=== PATIENT | female | born 1985 | race Caucasian/White ===

== ENCOUNTER 2025-01-11 10:08 | Inpatient (IN) | payer MEDICAID, SELFPAY ==
--- NOTE | ~2025-01-11 | XR_ITS ---
EXAMINATION: XR LUMBAR SPINE 2-3 VIEWS HISTORY: pain COMPARISON: There are no prior studies for comparison. FINDINGS: AP, lateral, and coned down views of the lumbar spine are submitted. Osseous mineralization is normal. Five nonrib-bearing lumbar vertebral bodies are identified, maintaining normal height and alignment without evidence of fracture or spondylolisthesis. The intervertebral disc spaces are preserved. The posterior elements are intact. The visualized paraspinal soft tissues are unremarkable. XR/XR lumbar spine 2-3V IMPRESSION: Unremarkable examination of the lumbar spine. Electronically signed by: Teodoro Hawk MD 01/11/2025 01:56 PM EDT
--- NOTE | ~2025-01-11 | CT_ITS ---
EXAMINATION: CT CERVICAL SPINE WITHOUT CONTRAST CLINICAL INFORMATION: Cervical pain. COMPARISON: None available. TECHNIQUE: Spiral CT imaging of the cervical spine performed in axial plane without contrast. Multiplanar reformatted images were constructed from the axial data set. This CT examination was performed using dose optimization techniques as appropriate, variously including the following: *Automated exposure control *Adjustment of mA and/or kV according to patient size (this includes techniques or standardized protocols for targeted exams where dose is matched to indication/reason for exam; i.e. extremities or head) *Use of iterative reconstruction technique FINDINGS: CORONAL ALIGNMENT: -Minimal levoconvex scoliosis, possibly positional. SAGITTAL ALIGNMENT: -Straightening of the normal lordosis. -There is a 2 mm retrolisthesis of C5-6 and C6-7. -Sagittal alignment is otherwise anatomic. C1-C2 AND CRANIOCERVICAL JUNCTION: -Intact and aligned. VERTEBRAL BODIES AND FACETS: -There is no fracture or compression deformity. -There are erosive endplate changes at C6-7, with endplate osteopenia and permeative-type changes. There is associated prevertebral soft tissue swelling and fluid present. Findings are highly suspicious for acute discitis/osteomyelitis. -Cannot exclude involvement of C5-6, which demonstrates much more subtle changes. -There is normal facet alignment. DISCS: -There is moderate disc space loss at C5-6 and more significant loss at C6-7. CENTRAL CANAL: -No evidence of high-grade central canal narrowing or large disc herniation allowing for modality limitations. PREVERTEBRAL AND PARAVERTEBRAL SOFT TISSUES: -There is prevertebral soft tissue swelling and edema spanning C4-T1, most notable at C5-6 and C6-7. There is thickening and edema of the longus capitis muscles. There is prevertebral fluid as well. -Normal thyroid. LUNG APICES: -Mild apical scarring. Otherwise clear. CT/CT cervical spine wo IV con IMPRESSION: 1. Permeative and erosive endplate changes at C5-6 and to a greater degree at C6-7, with endplate osteopenia and associated marked prevertebral soft tissue swelling and edema. Findings are highly suspicious for acute discitis/osteomyelitis, possibly of both C5-6 and C6-7. MRI recommended for further characterization. 2. No fracture or traumatic malalignment of the cervical spine. Emergent findings were discussed with Dr. Sarmiento of the [place] [facility] via phone call at 15:24, 01/11/2025, with findings understood. Electronically signed by: Jose Watkins MD 01/11/2025 03:31 PM EDT
--- NOTE | ~2025-01-11 | MR_ITS ---
CLINICAL HISTORY: neck abscess,spoke with Dr Rodriguez he approved Uncontrollable legs movements, multip le reminders given, unable to repeat. MR cervical spine with and without gadolinium Comparison: CT/ME/SR - CT CERVICAL SPINE WO IV CON - 01/11/25 14:34 EDT Straightening of normal cervical lordosis. Moderate spondylosis at C5-C6, and C6-C7 levels with disc space narrowing, endplate sclerosis, and osteophytosis. Vertebral body edema and enhancement of the C6 and C7 small amount of fluid within the disc space. Anterior pre and paravertebral space phlegmon /Early abscess changes extending from C3-C4 to T2 level measuring up to 1.6 cm in AP diameter. Ventral epidural space phlegmon changes/mole abscess extending from C5-C6 to T2 level measuring up to 4 mm in thickness causing moderate canal narrowing. No abnormal cord signal. Extensive dorsal spinal spinal soft tissue edema and enhancement right more than left centered at C6-C7. [place] IMPRESSION: C6-C7 discitis /osteomyelitis with prevertebral and anterior paravertebral space phlegmon/early abscess changes extending from C3 C4-T2 level measuring up to 1.6 cm in thickness as well as ventral epidural space phlegmon /small abscess extending from C5-C6 through T2 level measuring up to 4 mm in thickness, causing moderate canal narrowing. No abnormal cord signal. Extensive dorsal spinal spinal soft tissue edema and enhancement right more than left centered at C6-C7. Moderate spondylosis at C5-C6 and C6-C7 levels. This document has been electronically signed by: Sreedhar Valverde MD on 01/11/2025 21:35:11
--- NOTE | ~2025-01-11 | CT_ITS ---
EXAMINATION: CT HEAD WITHOUT IV CONTRAST HISTORY: trauma. TECHNIQUE: Unenhanced helical CT of the head was performed per standard departmental protocol. Coronal and sagittal reformats of the head were also evaluated. One or more of the following techniques was used for dose reduction: Automated exposure control, adjustment of the mA and/or kV according to patient size, use of iterative reconstruction technique. DLP: 679 mGy-cm COMPARISON: There are no prior studies for comparison. FINDINGS: BRAIN: The brain parenchyma is unremarkable. There is normal ramirez/white differentiation. The ventricular system is normal in size and configuration. There is no mass effect or midline shift. No intra- or extra-axial fluid collections are identified. SINUSES: The visualized paranasal sinuses are clear. The mastoid air cells and middle ear cavities are well pneumatized. ORBITS: The visualized orbits are unremarkable. BONES/SOFT TISSUES: The extracranial soft tissues are unremarkable. The calvarium is intact. No suspicious lytic or sclerotic lesions. CT/CT head/brain wo IV con IMPRESSION: Unremarkable unenhanced head CT. Electronically signed by: Teodoro Hawk MD 01/11/2025 03:18 PM EDT
--- NOTE | ~2025-01-11 | XR_ITS ---
EXAMINATION: XR CHEST 2 VIEWS HISTORY: cough COMPARISON: There are no prior studies for comparison. FINDINGS: AP and lateral views of the chest are submitted. The lungs are expanded and clear. There is no pleural effusion, pneumothorax, or pulmonary vascular congestion. The heart is normal in size. The bones are intact. XR/XR chest 2V IMPRESSION: Normal examination of the chest. Electronically signed by: Teodoro Hawk MD 01/11/2025 01:54 PM EDT
[2025-01-11 10:42] VITALS: BP 110/81; PULSE 98; RESP 18; TEMP 36.3; O2SAT 98; BMI 18.2
[2025-01-11 12:15] LABS: MANUAL DIFF FLAG NO
[2025-01-11 12:17] LABS: Basophils Percent Auto 0.2 % (0-2); Eosinophils Percent Auto 0.1 % (0-4); Hematocrit 30.9 % (37.0-47.0); Hemoglobin 10.1 g/dl (12.0-16.0); Imm Gran Abs Auto 0.07 X10*3/uL (0.00-0.03); Imm Gran Pct Auto 0.8 % (0.0-0.4); Lymphocytes Absolute Auto 0.9 X10*3/uL (1.2-4.9); Lymphocytes Percent Auto 10.4 % (20-40); Mean Corpuscular HGB Conc 32.7 g/dl (31.0-35.0); Mean Corpuscular Hemoglobin 28.9 pg (27.0-33.0); Mean Corpuscular Volume 88.5 fL (80.0-98.0); Mean Platelet Volume 8.4 fL (9.4-12.3); Monocytes Absolute Auto 0.4 X10*3/uL (0.1-1.2); Monocytes Percent Auto 5.1 % (2-11); Neutrophils Absolute Auto 7.2 x10*3/uL (2.0-8.3); Neutrophils Percent Auto 83.4 % (45-73); Platelet Count 448 X10*3/uL (160-400); Red Blood Count 3.49 X10*6/uL (4.20-5.50); Red Cell Distribution Width 14.6 % (11.0-16.0); White Blood Count 8.6 X10*3/uL (4.8-10.8)
[2025-01-11 12:38] LABS: Alanine Aminotransferase 63 U/L (0-31); Albumin Level 3.3 g/dL (3.5-5.0); Alkaline Phosphatase 136 U/L (39-117); Anion Gap 15 (12-20); Aspartate Amino Transferase 37 U/L (5-31); Bilirubin Total 0.3 mg/dL (0.0-1.0); Blood Urea Nitrogen 6 mg/dL (9-16); Calcium 8.9 mg/dL (8.4-10.2); Carbon Dioxide 27 mmol/L (22-29); Chloride 103 mmol/L (96-108); Creatinine Clr Calc Pharmacy 110.7; Estimated Glomerular Filt Rate > 60; Glucose Random 113 mg/dL (60-115); Potassium 4.1 mmol/L (3.3-5.1); Sodium 141 mmol/L (135-145); Total Protein 7.1 g/dL (6.5-8.0)
[2025-01-11 12:43] LABS: HCG Quantitative < 2 mIU/mL
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
[2025-01-11] MEDS: NaPROXEN 500 MG TABLET PO (13:04)
[2025-01-11] MEDS: diazePAM 5 MG TABLET PO (13:04)
[2025-01-11 14:10] VITALS: BP 103/66; PULSE 68; RESP 12; TEMP 36.6; O2SAT 96
[2025-01-11 16:02] VITALS: TEMP 37.1
[2025-01-11] MEDS: 0.9 % Sodium Chloride 1,000 ML 999 ML IVCONT ×3 (16:25→18:38)
[2025-01-11] MEDS: Ketorolac Tromethamine 15 MG/ML VIAL IVPUSH (16:37)
[2025-01-11 16:55] LABS: Erythrocyte Sedimentation Rate 104 MM/HR (0-20)
--- NOTE | 2025-01-11 17:10 | PC.NURSE ---
pt off floor to MRI at this time
--- NOTE | 2025-01-11 17:15 | HE.PHANOTE ---
RE: METHADONE DOSING Last dose of methadone 70 mg was given at [facility] [phone] on 01/03/25 @1203 per SAGAR Myrick.
[2025-01-11] MEDS: gadobutroL 7.5 ML VIAL IVPUSH (18:21)
[2025-01-11] MEDS: vancomycin HCL 1,250 MG in 0.9 % Sodium Chloride 250 ML 166.67 MG IV (18:37)
--- NOTE | 2025-01-11 18:44 | PC.NURSE ---
Patient returned from MRI, results pending. 20G in Left bicep, finished running 2L NaCl. Currently running vanco. COWS = 7 Patient currently sleeping.
[2025-01-11 19:40] VITALS: BP 104/68; PULSE 57; RESP 16; TEMP 36.2; O2SAT 99
[2025-01-11] MEDS: methADONE HCl 20 MG/2 ML ORAL.CONC 30 MG PO (19:52)
[2025-01-11] MEDS: Piperacillin Sodium/Tazobactam 3.375 GM in 0.9 % Sodium Chloride 50 ML IV (22:44)
[2025-01-11 22:45] VITALS: BP 97/52; PULSE 54; RESP 16; TEMP 36.4; O2SAT 99
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
[2025-01-11] MEDS: Albumin Human 25 % 100 ML 133.33 ML IV (23:53)
[2025-01-11] MEDS: Morphine Sulfate 4 MG/ML CARTRIDGE IVPUSH (23:53)
[2025-01-11] MEDS: 0.9 % Sodium Chloride Flush 3 ML SYRINGE IVFLUSH (23:58)
[2025-01-12] MEDS: Enoxaparin Sodium 40 MG/0.4 ML SYRINGE SUBCUT
[2025-01-12 00:04] VITALS: BP 116/79; PULSE 54; RESP 12; TEMP 36.4; O2SAT 100
[2025-01-12 00:12] LABS: Lactic Acid 1.3 mmol/L (0.5-2.0)
[2025-01-12] MEDS: Albumin Human 25 % 100 ML 133.33 ML IV (00:52)
[2025-01-12 01:29] VITALS: BMI 18.8
[2025-01-12 01:30] VITALS: BP 118/77; PULSE 60; RESP 20; TEMP 36.3; O2SAT 100
[2025-01-12] MEDS: diazePAM 2 MG TABLET PO (01:50)
[2025-01-12] MEDS: Acetaminophen 325 MG TABLET 650 MG PO ×3 (01:50→22:51)
[2025-01-12] MEDS: Melatonin 3 MG TABLET 6 MG PO (01:51)
[2025-01-12] MEDS: Piperacillin Sodium/Tazobactam 4.5 GM in 0.9 % Sodium Chloride 100 ML IV ×4 (03:56→22:08)
[2025-01-12 06:01] LABS: MANUAL DIFF FLAG NO
[2025-01-12 06:08] LABS: Basophils Percent Auto 0.5 % (0-2); Eosinophils Percent Auto 0.4 % (0-4); Hematocrit 29.5 % (37.0-47.0); Hemoglobin 9.5 g/dl (12.0-16.0); Imm Gran Abs Auto 0.03 X10*3/uL (0.00-0.03); Imm Gran Pct Auto 0.5 % (0.0-0.4); Lymphocytes Absolute Auto 1.5 X10*3/uL (1.2-4.9); Lymphocytes Percent Auto 26.5 % (20-40); Mean Corpuscular HGB Conc 32.2 g/dl (31.0-35.0); Mean Corpuscular Hemoglobin 28.9 pg (27.0-33.0); Mean Corpuscular Volume 89.7 fL (80.0-98.0); Mean Platelet Volume 8.7 fL (9.4-12.3); Monocytes Absolute Auto 0.3 X10*3/uL (0.1-1.2); Monocytes Percent Auto 5.6 % (2-11); Neutrophils Absolute Auto 3.7 x10*3/uL (2.0-8.3); Neutrophils Percent Auto 66.5 % (45-73); Platelet Count 401 X10*3/uL (160-400); Red Blood Count 3.29 X10*6/uL (4.20-5.50); Red Cell Distribution Width 14.7 % (11.0-16.0); White Blood Count 5.5 X10*3/uL (4.8-10.8)
[2025-01-12 06:31] LABS: Anion Gap 13 (12-20); Blood Urea Nitrogen 11 mg/dL (9-16); Calcium 8.1 mg/dL (8.4-10.2); Carbon Dioxide 24 mmol/L (22-29); Chloride 111 mmol/L (96-108); Estimated Glomerular Filt Rate > 60; Glucose Random 109 mg/dL (60-115); Potassium 3.7 mmol/L (3.3-5.1); Sodium 144 mmol/L (135-145)
--- NOTE | 2025-01-12 07:04 | PHA.PROG ---
Admission Date/Time: January 11, 2025 23:00 Indication: bone Weight in k.8 kg Serum Creatinine - Last 168 Hours 01/11/25 01/12/25 11:55 05:25 Creatinine 0.59 0.54 Estimated CrCl and GFR - Last 168 Hours 01/11/25 01/12/25 11:55 05:25 Estim Creat Clear Calc 110.7 125.0 Estimated GFR > 60 > 60 Vancomycin Loading Dose: 1250 Current Vancomycin Dosing Regimen: 1250 mg q 12h Vancomycin Monitoring using AUC goal of 400 - 600 range with trough as surrogate marker: 534 Date and Time for next Vancomycin Level to be drawn: 01/13 @ 1800 Pharmacist Comments on Vancomycin Plan: Vancomycin dosing will take advantage of [employer] as a clinical decision support tool that uses Bayesian modeling to calculate individual patient's pharmacokinetic parameters and forecast the patient's drug concentration time course with the target goal AUC 24 range of 400 - 600 mg/L/hr.
--- NOTE | 2025-01-12 07:08 | PHA.PROG ---
Admission Date/Time: January 11, 2025 23:00 Indication: BONE Weight in k.8 kg Serum Creatinine - Last 168 Hours 01/11/25 01/12/25 11:55 05:25 Creatinine 0.59 0.54 Estimated CrCl and GFR - Last 168 Hours 01/11/25 01/12/25 11:55 05:25 Estim Creat Clear Calc 110.7 125.0 Estimated GFR > 60 > 60 Vancomycin Loading Dose: 1250 Current Vancomycin Dosing Regimen: 750 Q 8 Vancomycin Monitoring using AUC goal of 400 - 600 range with trough as surrogate marker: 481 Date and Time for next Vancomycin Level to be drawn: 01/12 @ 0600 Pharmacist Comments on Vancomycin Plan: Vancomycin dosing will take advantage of [employer] as a clinical decision support tool that uses Bayesian modeling to calculate individual patient's pharmacokinetic parameters and forecast the patient's drug concentration time course with the target goal AUC 24 range of 400 - 600 mg/L/hr.
[2025-01-12 08:00] VITALS: BP 119/73; PULSE 60; RESP 16; TEMP 36.6; O2SAT 100
[2025-01-12] MEDS: Morphine Sulfate 4 MG/ML CARTRIDGE IVPUSH ×4 (08:28→22:05)
[2025-01-12] MEDS: vancomycin HCL 750 MG in 0.9 % Sodium Chloride 250 ML 265 MG IV ×3 (08:28→22:48)
[2025-01-12] MEDS: 0.9 % Sodium Chloride Flush 3 ML SYRINGE IVFLUSH ×3 (08:35→22:04)
--- NOTE | 2025-01-12 09:03 | PHA.MEDREC ---
Addendum entered by Joaquín Aguilar 01/12/25 09:16: reviewed Original Note: Pharmacy Consult ? Medication Reconciliation Pharmacy has completed the medication reconciliation. Spoke with patient and she confirmed her medications. Pt confirmed she was taking Methadone 70mg daily, but stated she has not been to the clinic in about 4-5 days.
[2025-01-12 10:43] VITALS: BMI 18.8
--- NOTE | 2025-01-12 10:50 | MHC.CLN ---
NUTRITION DIET=REGULAR. PATIENT IS THIN, UNDERWEIGHT, BUT DOES NOT APPEAR MALNOURISHED. HX POLYSUBSTANCE ABUSE LIKELY CONTRIBUTOR TO LOW BODY WEIGHT. DISCUSSED ADDING SUPPLEMENT. PATIENT AGREES STATING THAT SHE WOULD LIKE TO GAIN WEIGHT. ENSURE TID PROVIDES 1050 KCALS, 60 G PROTEIN. TOOK LESS THAN 50% AT BREAKFAST TODAY. FOLLOW FOR PO INTAKE AND ENCOURAGE SUPPLEMENT ABLE. SEE CLINICAL NUTRITION ASSESSMENT 01/12/25.
--- NOTE | 2025-01-12 11:01 | HO.PM.IMPN ---
Subjective Subjective Date of Service: 01/12/25 Interval History: f/u on back pain, disckitis in patient with iv drug use report pain, no neurological changes. No incontinence, urine or stool Physical Exam Vital Signs: Vital Signs: Last Vital Signs Temp 97.8 F 01/12/25 08:00 Pulse 60 01/12/25 08:00 Resp 16 01/12/25 08:00 BP 119/73 01/12/25 08:00 Pulse Ox 100 01/12/25 08:00 O2 Del Method Room Air 01/12/25 08:00 BMI result Body Mass Index 18.8 Const: Other: General: AO X 3, no acute distress Resp: CTA bilateral CVS: S1,S2,RRR GI: +BS, NT, no distention Skin: No rash Neuro: motor grossly intact, no numbness, no weakness in hands of leg Psych: appropriate affect Objective Data Active Medications Acetaminophen (Acetaminophen 325 Mg Tablet) 650 mg PO Q6H PRN PRN Reason: Pain, Mild 1-3,fever,headache Last Admin: 01/12/25 01:50 Dose: 650 mg Documented By: LATRICIA Calcium Carbonate (Calcium Carbonate 750 Mg Tab.Chew) 750 mg PO Q4H PRN PRN Reason: Heartburn Enoxaparin Sodium (Enoxaparin Sodium 40 Mg/0.4 Ml Syringe) 40 mg SUBCUT Q24H [facility] Last Admin: 01/12/25 00:00 Dose: 40 mg Documented By: JOAO Piperacillin Sod/Tazobactam (Sod 4.5 gm/ Sodium Chloride) 100 mls @ 200 mls/hr IV Q6H [facility] Last Admin: 01/12/25 10:16 Dose: 200 mls/hr Documented By: JUICE Vancomycin HCl 750 mg/ Sodium (Chloride) 265 mls @ 265 mls/hr IV Q8H [facility] Last Infusion: 01/12/25 10:20 Dose: Infused Documented By: JUICE Magnesium Hydroxide (Milk Of Magnesia 30 Ml Oral.Susp) 30 ml PO DAILY PRN PRN Reason: Constipation Melatonin (Melatonin 3 Mg Tablet) 6 mg PO BEDTIME PRN PRN Reason: Insomnia Last Admin: 01/12/25 01:51 Dose: 6 mg Documented By: LATRICIA Morphine Sulfate (Morphine Sulfate 4 Mg/Ml Cartridge) 4 mg IVPUSH Q4H PRN; Protocol PRN Reason: Pain, Severe (Pain Scale 7-10) Last Admin: 01/12/25 08:28 Dose: 4 mg Documented By: JUICE Ondansetron HCl (Ondansetron Hcl 4 Mg/2 Ml Vial) 4 mg IVPUSH Q8H PRN PRN Reason: Nausea and Vomiting Pharmacy Consult (Consult Rx Vancomycin Dosing) 1 each MISCELLANE DAILY PRN PRN Reason: Consult order Sodium Chloride (0.9 % Sodium Chloride Flush 3 Ml Syringe) [facility] Last Admin: 01/12/25 08:35 Dose: 3 ml Documented By: JUICE Labs 01/12/25 05:25 01/12/25 05:25 Labs: Laboratory Results - last 24 hr 01/11/25 01/11/25 01/11/25 11:55 16:04 23:56 MCV 88.5 MCH 28.9 MCHC 32.7 RDW 14.6 Plt Count 448 H MPV 8.4 L Immature Gran % (Auto) 0.8 H Neut % (Auto) 83.4 H Lymph % (Auto) 10.4 L [place] % (Auto) 5.1 Eos % (Auto) 0.1 Baso % (Auto) 0.2 Lymph # (Auto) 0.9 L [place] # (Auto) 0.4 Eos # (Auto) 0.0 Baso # (Auto) 0.0 Abs Immat Gran (auto) 0.07 H Absolute Neuts (auto) 7.2 Absolute Nucleated RBC 0.000 Nucleated RBC % (auto) 0.0 ESR 104 H Anion Gap 15 Estim Creat Clear Calc 110.7 Estimated GFR > 60 Random Glucose 113 Lactic Acid 1.3 Calcium 8.9 Total Bilirubin 0.3 AST 37 H ALT 63 H Alkaline Phosphatase 136 H Total Protein 7.1 Albumin 3.3 L Beta HCG, Quant < 2 01/12/25 05:25 MCV 89.7 MCH 28.9 MCHC 32.2 RDW 14.7 Plt Count 401 H MPV 8.7 L Immature Gran % (Auto) 0.5 H Neut % (Auto) 66.5 Lymph % (Auto) 26.5 [place] % (Auto) 5.6 Eos % (Auto) 0.4 Baso % (Auto) 0.5 Lymph # (Auto) 1.5 [place] # (Auto) 0.3 Eos # (Auto) 0.0 Baso # (Auto) 0.0 Abs Immat Gran (auto) 0.03 Absolute Neuts (auto) 3.7 Absolute Nucleated RBC 0.000 Nucleated RBC % (auto) 0.0 ESR Anion Gap 13 Estim Creat Clear Calc 125.0 Estimated GFR > 60 Random Glucose 109 Lactic Acid Calcium 8.1 L D Total Bilirubin AST ALT Alkaline Phosphatase Total Protein Albumin Beta HCG, Quant Assessment and Plan (1) Discitis: Status: Acute (2) Spinal abscess: Status: Acute (3) Polysubstance use disorder: Status: Acute Plan 39-year-old female with pertinent history of polysubstance IV drug use disorder on methadone who presents to the emergency department for evaluation of upper back pain. Acute cervical diskitis/osteomyelitis with prevertebral/paravertebral/epidural phlegmon/abscess discussed with [facility] no indication for transfer or intervention. IV vanco and zosy follow blood cultures, echo if positive cultures ID consults pain meds Polysubstance use disorder check urine drug screen continue methadone addiction med consult clonidine, hydroxyzine for withdrawal DVT prophylaxis: Lovenox Full code Admit as inpatient and will require two night minimum hospital stay for IV antibiotics (as above), which is not possible in a lesser acute setting Quality Stroke Does the patient have a stroke diagnosis?: No VTE Prior VTE?: No VTE Risk Level:: Medical - moderate - high VTE Device Contraindication: Treatment Not Indicated VTE Drug Contraindication: N/A - Med Ordered
--- NOTE | 2025-01-12 11:25 | CA_ITS ---
Transthoracic Echocardiogram Patient (Last, First, Middle): Angie Silva, Gender: Female Date of : 1985 Age: 39 Procedure Date: 01/12/2025 Procedure Type: Transthoracic Echocardiogram Location: S3E Height: 175.26 cm Weight: 57.61 kg BSA: 1.70 m2 Heart Rate: 67 bpm BP: 119 / 73 mmHg Resident Assistant Cna: LORA Referring MD: Dani Salazar MD Manager Financial: Octavio Sandoval MD Symptoms: bacteremia, Study Quality: Adequate ECG Rhythm: Sinus Conclusions: - 1. Tricuspid valve vegetation with trace to mild tricuspid regurgitation 2. Normal LV ejection fraction of 60 65% 3. Thickened mitral valve, can not rule out vegetation on the mitral leaflets 4. Normal RV systolic pressure 5. No gross pericardial effusion Findings Left Ventricle Normal left ventricular size, thickness, and systolic function. The visually estimated ejection fraction is between 60-65%. Spectral Doppler is indicative of a normal filling pattern. Right Ventricle Normal right ventricular cavity size and systolic function. Atria Both atria are normal in size. There is no evidence of interatrial shunt. Aortic Valve Normal aortic valve structure and function. There is no aortic valve stenosis. There is no aortic valve regurgitation. Mitral Valve There is mild anterior and posterior mitral leaflet thickening. There is no mitral valve regurgitation. There is no mitral valve stenosis. vegetation can not be entirely ruled out on this study Pulmonic Valve The pulmonic valve was not well visualized. Tricuspid Valve Normal tricuspid valve structure. There is trace tricuspid valve regurgitation. There is a moderate mobile mass on the tricuspid valve. The mass is consistent with vegetation. The right ventricular systolic pressure is normal. noted to have a mobile mass attached which is suggestive of vegetation in the tricuspid valve Great Vessels All visible segments of the aorta are normal in size. The pulmonary artery was not well visualized. Venous The inferior vena cava is normal in size and collapses greater than 50% with inspiration. Pericardium/Pleural There is no evidence of pericardial effusion. Prior Study Comparison No prior study available for comparison. Measurements 2D Linear Measurements IVSd: 0.71 0.6-0.9/0.6-1.0 cm LVIDd: 5.63 3.9-5.3/4.2-5.9 cm LVIDd Index: 3.31 2.4-3.2/2.2-3.1 cm/m2 LVIDs: 4.02 2.0-3.6 cm LVPWd: 0.63 0.7-1.1 cm Ao Root: 3.70 2.1-3.5 cm LA Diam: 3.70 2.7-3.8/3.0-4.0 cm LAIDs Index: 2.18 1.5-2.3 cm/m2 LV Mass: 166.41 67-162/88-224 g LV Mass Index: 97.89 43-95/49-115 g/m2 LVOT Diam: 2.20 3.0+(-)1.3 cm 2D Systolic Function EF 4C: 57.00 >55% EF 2C: 51.10 >55% Mitral Valve MV Pk E: 0.69 MV PK A: 0.31 MV Decel Time: 234.00 E/A: 2.30 E'Lateral: 14.00 E'Medial: 10.90 E/E' Med: 6.40 E/E' Lat: 5.00 PHT: 68.00 MVA PHT: 3.24 Decel Runnels: 2.97 Aortic Valve AoV Pk Bryon: 1.22 AoV Pk Grad: 6.00 ERNESTO: 3.23 LVOT LVOT Pk Bryon: 1.05 LVOT Mn Bryon: 0.73 LVOT VTI: 0.21 LVOT Pk Grad: 4.00 LVOT Mn Grad: 2.00 LVOT Diam: 2.20 LVOT Area: 3.80 Diastolic Function MV Pk E: 0.69 MV Pk A: 0.31 E/A: 2.30 E'Medial: 10.90 E/E' Med: 6.40 E' Laterial: 14.00 E/E' Lat: 5.00 Right Ventricle TAPSE (mm): 25.00 TVS' Bryon: 11.70 Tricuspid Valve TR Pk Bryon: 1.84 TR Pk Grad: 14.00 RA Press: 3.00 RVSP: 17.00 Great Vessels Aorta Ao Root-2D: 3.70 2.0-3.7 cm Sinus of Valsalva: 3.70 2.0-3.5 cm Ao Asc: 3.50 2.1-3.4 cm Pulmonary Veins Pulm Vein S/D 1.10 Pulmonary Valve PV Pk Bryon: 0.88 Peak PV Grad: 3.00 Updated in Other Vendor System with Status of Final Octavio Sandoval MD electronically signed on 01/12/2025 4:16:53 PM with status of Final
[2025-01-12] MEDS: methADONE HCl 20 MG/2 ML ORAL.CONC 50 MG PO (11:49)
--- NOTE | 2025-01-12 13:15 | MHC.CM.PN ---
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
--- NOTE | 2025-01-12 13:43 | P.CNID_ITS ---
History of Present Illness Data of Consult Service Date: 01/12/25 Requesting physician: Dani Salazar Primary Care Provider: Unknown Physician HPI Reason for consult: right shoulder /lower back pain She presents with three days neck pain,lower as well as right upper back. She has diskitis C3-C7 with phlegmon as well per Neurosurgery recommended medical treatment only. She has no fever or chills. She hasnt used injection drugs in months she says. She has missed last three days of Methadone due to lack of transportation. Blood culture gram positive cocci. Review of Systems 2 Review of Systems: Yes all other systems are reviewed and are negative [facility] Past Medical History Medical History Bacteremia Polysubstance use disorder Family History Family history: reviewed and not pertinent Social History Social History Household Members: Children Housing: House Do you presently have visiting nurse or other home services: No Patient Tobacco Use Status: Never used Tobacco Substance Use Type: Crack/Cocaine service: No Meds Allergies Allergy/AdvReac Type Severity Reaction Status Date / Time No Known Allergies Allergy Verified 01/11/25 10:47 Active Medications: Current Medications Acetaminophen (Acetaminophen 325 Mg Tablet) 650 mg PO Q6H PRN PRN Reason: Pain, Mild 1-3,fever,headache Last Admin: 01/12/25 01:50 Dose: 650 mg Calcium Carbonate (Calcium Carbonate 750 Mg Tab.Chew) 750 mg PO Q4H PRN PRN Reason: Heartburn Clonidine HCl (Clonidine Hcl 0.1 Mg Tablet) 0.1 mg PO TID PRN; Protocol PRN Reason: Opiate Withdrawal Enoxaparin Sodium (Enoxaparin Sodium 40 Mg/0.4 Ml Syringe) 40 mg SUBCUT Q24H [facility] Last Admin: 01/12/25 00:00 Dose: 40 mg Hydroxyzine HCl (Hydroxyzine Hcl 10 Mg Tablet) 10 mg PO Q8H PRN PRN Reason: anxiety/restlessness Piperacillin Sod/Tazobactam (Sod 4.5 gm/ Sodium Chloride) 100 mls @ 200 mls/hr IV Q6H [facility] Last Infusion: 01/12/25 11:32 Dose: Infused Vancomycin HCl 750 mg/ Sodium (Chloride) 265 mls @ 265 mls/hr IV [facility] Last Infusion: 01/12/25 10:20 Dose: Infused Magnesium Hydroxide (Milk Of Magnesia 30 Ml Oral.Susp) 30 ml PO DAILY PRN PRN Reason: Constipation Melatonin (Melatonin 3 Mg Tablet) 6 mg PO BEDTIME PRN PRN Reason: Insomnia Last Admin: 01/12/25 01:51 Dose: 6 mg Methadone HCl (Methadone Hcl 20 Mg/2 Ml Oral.Conc) 70 mg PO DAILY [facility] Morphine Sulfate (Morphine Sulfate 4 Mg/Ml Cartridge) 4 mg IVPUSH Q4H PRN; Protocol PRN Reason: Pain, Severe (Pain Scale 7-10) Last Admin: 01/12/25 13:07 Dose: 4 mg Ondansetron HCl (Ondansetron Hcl 4 Mg/2 Ml Vial) 4 mg IVPUSH Q8H PRN PRN Reason: Nausea and Vomiting Oxycodone HCl (Oxycodone Hcl Immed Release 5 Mg Tablet) 5 mg PO Q6H PRN PRN Reason: Pain, Moderate(Pain Scale 4-6) Pharmacy Consult (Consult Rx Vancomycin Dosing) 1 each MISCELLANE DAILY PRN PRN Reason: Consult order Sodium Chloride (0.9 % Sodium Chloride Flush 3 Ml Syringe) 3 ml IVFLUSH [facility] Last Admin: 01/12/25 08:35 Dose: 3 ml Home Medications ?Medication ?Instructions ?Recorded ?Confirmed ?Last Taken ?Type methadone 10 mg/mL oral 70 mg PO DAILY 01/11/25 01/11/25 01/03/25 History concentrate (Methadone Intensol) ibuprofen 200 mg tablet 400 mg PO Q8H PRN Pain 01/12/25 01/12/25 Unknown History melatonin 3 mg tablet 9 mg PO BEDTIME 01/12/25 01/12/25 Unknown History Physical Exam 2 Vital Signs: Vital Signs: Last Vital Signs Temp 97.8 F 01/12/25 08:00 Pulse 60 01/12/25 08:00 Resp 16 01/12/25 08:00 BP 119/73 01/12/25 08:00 Pulse Ox 100 01/12/25 08:00 O2 Del Method Room Air 01/12/25 08:00 BMI result Body Mass Index 18.8 Const: General: cooperative HEENT: Head: Yes normal to inspection Face and sinus: Yes normal facial exam Mouth: Normal oral and palatal mucosa present Teeth and gingiva: d entition normal Eyes: General: appearance normal, both eyes and all related structures P upils: Equal, round and reactive pupils present Resp: Effort & Inspection: normal respiratory effort Cardio: Other: 2/6 CAMPOS Rate: regular rate Rhythm: regular rhythm GI: Palpation (GI): Soft to palpation and nontender : General: Yes no CVA tenderness Back/Spine/Pelvis: Back: no CVA tenderness Skin: General skin exam: no rashes or lesions noted Neuro: General: moves all extremities Cranial nerves: Yes Equal, round and reactive pupils present Extrem: General: Yes normal to inspection Psych: Appearance: grossly normal Results Labs 01/12/25 05:25 01/12/25 05:25 Labs: Short CBC 01/12/25 Range/Units 05:25 WBC 5.5 (4.8-10.8) X10*3/uL Hgb 9.5 L (12.0-16.0) g/dl Hct 29.5 L (37.0-47.0) % Plt Count 401 H (160-400) X10*3/uL BMP 01/12/25 05:25 Sodium 144 Potassium 3.7 Chloride 111 H Carbon Dioxide 24 BUN 11 Creatinine 0.54 Calcium 8.1 L D Microbiology Microbiology Results: Microbiology 01/11/25 16:01 Blood - Venous Blood Culture - Preliminary Prelim: GPC Gram Stain only Assessment and Plan (1) Polysubstance use disorder: Status: Acute (2) Spinal abscess: Status: Acute (3) Discitis: Qualifiers: Spinal region: cervical Qualified Code(s): M46.42 - Discitis, unspecified, cervical region Status: Acute (4) Bacteremia: Status: Acute Plan She has possible MRSA or MSSA bacteremia cause of diskiitis. She has drug use contributory concern. She doesnt know Hepatitis C or HIV status. Would give IV Vancomycin for six weeks and check Vancomycin level and creatinine weekly. Check Hepatitis C and HIV. Continue Methadone .
[2025-01-12] MEDS: hydrOXYzine HCL 10 MG TABLET PO ×2 (14:13→22:42)
[2025-01-12 14:43] VITALS: BP 98/59; PULSE 67; RESP 16; TEMP 36.8; O2SAT 98
--- NOTE | 2025-01-12 15:21 | HO.ADDICTCON ---
History of Present Illness Date of Service: 01/12/2025 Chief Complaint: back pain Reason for Consult: OUD Sources of Information: patient interviewed and chart reviewed HPI Narrative: Patient is a 39 year old female medically admitted with spinal abcess consult requested due to substance use and methadone restart Patient seen X2 as 1st evaluation patient was quite tearful, reporting pain and withdrawal sx. Methadone 50mg ordered --and dose verified at 70mg QD with last dose being 01/03/25. When seen again, patient was in process of having an echo, so full substance use history could not be obtained, however patient noted some improvement in pain, and no longer tearful. Medical Evaluation Reviewed: Yes Review of Systems Constitutional: Reports as per HPI, Reports body ache(s), Reports difficulty sleeping, Reports malaise and Reports weakness Gastrointestinal: Denies loose stools and Denies nausea Musculoskeletal: Reports back pain, Reports myalgias and Reports muscle cramps Reports weakness Psychiatric: Reports anxiety Diagnostics Vital Signs (24Hr): Vital Signs - 24 hr 01/11/25 16:02 01/11/25 19:40 01/11/25 22:45 Temperature 98.8 F 97.1 F 97.6 F Pulse Rate 57 54 Respiratory Rate 16 16 Blood Pressure 104/68 97/52 L Pulse Oximetry 99 99 Oxygen Delivery Method Room Air Room Air 01/12/25 00:04 01/12/25 01:30 01/12/25 08:00 Temperature 97.6 F 97.4 F 97.8 F Pulse Rate 54 60 60 Respiratory Rate 12 20 16 Blood Pressure 116/79 118/77 119/73 Pulse Oximetry 100 100 100 Oxygen Delivery Method Room Air Room Air Room Air 01/12/25 14:43 Temperature 98.3 F Pulse Rate 67 Respiratory Rate 16 Blood Pressure 98/59 L Pulse Oximetry 98 Oxygen Delivery Method Room Air BMI result Body Mass Index 18.8 Labs 01/12/25 05:25 01/13/25 05:54 Labs: Laboratory Results - last 48 hr 01/11/25 01/11/25 01/11/25 11:55 16:04 23:56 WBC 8.6 RBC 3.49 L Hgb 10.1 L Hct 30.9 L MCV 88.5 MCH 28.9 MCHC 32.7 RDW 14.6 Plt Count 448 H MPV 8.4 L Immature Gran % (Auto) 0.8 H Neut % (Auto) 83.4 H Lymph % (Auto) 10.4 L [place] % (Auto) 5.1 Eos % (Auto) 0.1 Baso % (Auto) 0.2 Lymph # (Auto) 0.9 L [place] # (Auto) 0.4 Eos # (Auto) 0.0 Baso # (Auto) 0.0 Abs Immat Gran (auto) 0.07 H Absolute Neuts (auto) 7.2 Absolute Nucleated RBC 0.000 Nucleated RBC % (auto) 0.0 ESR 104 H Sodium 141 Potassium 4.1 Chloride 103 Carbon Dioxide 27 Anion Gap 15 BUN 6 L Creatinine 0.59 Estim Creat Clear Calc 110.7 Estimated GFR > 60 Random Glucose 113 Lactic Acid 1.3 Calcium 8.9 Total Bilirubin 0.3 AST 37 H ALT 63 H Alkaline Phosphatase 136 H Total Protein 7.1 Albumin 3.3 L Beta HCG, Quant < 2 01/12/25 05:25 WBC 5.5 RBC 3.29 L Hgb 9.5 L Hct 29.5 L MCV 89.7 MCH 28.9 MCHC 32.2 RDW 14.7 Plt Count 401 H MPV 8.7 L Immature Gran % (Auto) 0.5 H Neut % (Auto) 66.5 Lymph % (Auto) 26.5 [place] % (Auto) 5.6 Eos % (Auto) 0.4 Baso % (Auto) 0.5 Lymph # (Auto) 1.5 [place] # (Auto) 0.3 Eos # (Auto) 0.0 Baso # (Auto) 0.0 Abs Immat Gran (auto) 0.03 Absolute Neuts (auto) 3.7 Absolute Nucleated RBC 0.000 Nucleated RBC % (auto) 0.0 ESR Sodium 144 Potassium 3.7 Chloride 111 H Carbon Dioxide 24 Anion Gap 13 BUN 11 Creatinine 0.54 Estim Creat Clear Calc 125.0 Estimated GFR > 60 Random Glucose 109 Lactic Acid Calcium 8.1 L D Total Bilirubin AST ALT Alkaline Phosphatase Total Protein Albumin Beta HCG, Quant Imaging Radiology Impressions: ITS Impressions Lumbar Spine X-Ray 01/11/25 12:50 IMPRESSION: Unremarkable examination of the lumbar spine. Electronically signed by: Teodoro Hawk MD 01/11/2025 01:56 PM EDT Cervical Spine CT 01/11/25 12:57 IMPRESSION: 1. Permeative and erosive endplate changes at C5-6 and to a greater degree at C6-7, with endplate osteopenia and associated marked prevertebral soft tissue swelling and edema. Findings are highly suspicious for acute discitis/osteomyelitis, possibly of both C5-6 and C6-7. MRI recommended for further characterization. 2. No fracture or traumatic malalignment of the cervical spine. Emergent findings were discussed with Dr. Sarmiento of the [facility] via phone call at 15:24, 01/11/2025, with findings understood. Electronically signed by: Jose Watkins MD 01/11/2025 03:31 PM EDT RP Chest X-Ray 01/11/25 13:30 IMPRESSION: Normal examination of the chest. Electronically signed by: Teodoro Hawk MD 01/11/2025 01:54 PM EDT RP Head CT 01/11/25 14:34 IMPRESSION: Unremarkable unenhanced head CT. Electronically signed by: Teodoro Hawk MD 01/11/2025 03:18 PM EDT RP Mental Status Exam Mental Status Exam Level of Consciousness: Awake, Appropriate and Lethargic Patient Behavior: Appropriate and Crying Mood Description: Anxious Affect Description: Anxious Speech Pattern: Clear Thought Process: Intact Thought Content: positive for Intact Judgement: Good Medications Medications Current Medications Acetaminophen (Acetaminophen 325 Mg Tablet) 650 mg PO Q6H PRN PRN Reason: Pain, Mild 1-3,fever,headache Last Admin: 01/12/25 14:13 Dose: 650 mg Calcium Carbonate (Calcium Carbonate 750 Mg Tab.Chew) 750 mg PO Q4H PRN PRN Reason: Heartburn Clonidine HCl (Clonidine Hcl 0.1 Mg Tablet) 0.1 mg PO TID PRN; Protocol PRN Reason: Opiate Withdrawal Enoxaparin Sodium (Enoxaparin Sodium 40 Mg/0.4 Ml Syringe) 40 mg SUBCUT Q24H [facility] Last Admin: 01/12/25 00:00 Dose: 40 mg Hydroxyzine HCl (Hydroxyzine Hcl 10 Mg Tablet) 10 mg PO Q8H PRN PRN Reason: anxiety/restlessness Last Admin: 01/12/25 14:13 Dose: 10 mg Piperacillin Sod/Tazobactam (Sod 4.5 gm/ Sodium Chloride) 100 mls @ 200 mls/hr IV Q6H [facility] Last Infusion: 01/12/25 11:32 Dose: Infused Vancomycin HCl 750 mg/ Sodium (Chloride) 265 mls @ 265 mls/hr IV Q8H [facility] Last Infusion: 01/12/25 10:20 Dose: Infused Magnesium Hydroxide (Milk Of Magnesia 30 Ml Oral.Susp) 30 ml PO DAILY PRN PRN Reason: Constipation Melatonin (Melatonin 3 Mg Tablet) 6 mg PO BEDTIME PRN PRN Reason: Insomnia Last Admin: 01/12/25 01:51 Dose: 6 mg Methadone HCl (Methadone Hcl 20 Mg/2 Ml Oral.Conc) 70 mg PO DAILY [facility] Morphine Sulfate (Morphine Sulfate 4 Mg/Ml Cartridge) 4 mg IVPUSH Q4H PRN; Protocol PRN Reason: Pain, Severe (Pain Scale 7-10) Last Admin: 01/12/25 13:07 Dose: 4 mg Ondansetron HCl (Ondansetron Hcl 4 Mg/2 Ml Vial) 4 mg IVPUSH Q8H PRN PRN Reason: Nausea and Vomiting Oxycodone HCl (Oxycodone Hcl Immed Release 5 Mg Tablet) 5 mg PO Q6H PRN PRN Reason: Pain, Moderate(Pain Scale 4-6) Pharmacy Consult (Consult Rx Vancomycin Dosing) 1 each MISCELLANE DAILY PRN PRN Reason: Consult order Sodium Chloride (0.9 % Sodium Chloride Flush 3 Ml Syringe) 3 ml IVFLUSH QSHIFT [facility] Last Admin: 01/12/25 08:35 Dose: 3 ml Allergies Allergies Allergy/AdvReac Type Severity Reaction Status Date / Time No Known Allergies Allergy Verified 01/11/25 10:47 Assessment & Plan Assessment & Plan (1) Opioid use disorder: Status: Acute Code(s): F11.90 - Opioid use, unspecified, uncomplicated Assessment and Plan: methadone 50mg today, back to home dose of 70mg in AM offer PRNs as necessary for pain and anxiety will follow up in AM Total time managing care of this patient today __35__ minutes. PMFSH Past Medical History Medical History Bacteremia Polysubstance use disorder Family History Family history: reviewed and not pertinent Social History Social History Household Members: Children Housing: House Do you presently have visiting nurse or other home services: No Patient Tobacco Use Status: Never used Tobacco Substance Use Type: Crack/Cocaine service: No
--- NOTE | 2025-01-12 16:55 | HO.WOUND ---
Addendum entered by Jodi Shukla RN 01/12/25 16:58: TT to Dr. Salazar with photo and recommendation to consult surgery. Original Note: Wound Consult: Initial 39yr old? admitted to [facility] on 01/11/25- See progress notes and H&P for detailed history.? Wound consult placed for Left Foot blister.? Patient agreeable to assessment and photo documentation.? Left Foot Etiology: ?suspect abscess ?Present on Admission Measurements: 1cm x 1cm Wound Bed: intact bulla fillled with yellow purulence Drainage / Odor: none Edges: ? well defined Fela wound: red erythema - swelling and pain ? No Induration, Fluctuance or Warmth noted Goals of Treatment: ? dry dressing - recommend surgery assessment for I&D Defer to surgery at this time. Re-consult wound care Nurse for wound deterioration or wound changes.
[2025-01-12 17:50] VITALS: BP 109/70
[2025-01-12 18:09] LABS: Amphetamine Screen Urine Not Detected (Not Detect); Barbiturates, Urine Not Detected (Not Detect); Benzodiazepines Screen Urine POSITIVE (Not Detect); Buprenorphine Scr Not Detected (Not Detect); Cannabinoid Screen Urine POSITIVE (Not Detect); Cocaine Screen Urine POSITIVE (Not Detect); Fentanyl, urine POSITIVE (Not Detect); Methadone Screen, Urine Positive (Not Detect); Opiate Screen Urine POSITIVE (Not Detect); Oxycodone Screen Urine Not Detected (Not Detect); Phencyclidine Screen Urine Not Detected (Not Detect)
[2025-01-12 19:10] VITALS: BP 104/59; PULSE 66; RESP 18; TEMP 37.2; O2SAT 95
[2025-01-13] VITALS (7 sets, daily range): BP systolic 103–115; BP diastolic 58–71; PULSE 52–70; RESP 12–18; TEMP 36.5–37.1; O2SAT 98–99
[2025-01-13] MEDS: Morphine Sulfate 4 MG/ML CARTRIDGE IVPUSH ×3 (04:23→20:49)
[2025-01-13] MEDS: Piperacillin Sodium/Tazobactam 4.5 GM in 0.9 % Sodium Chloride 100 ML IV ×2 (04:29→10:28)
[2025-01-13] MEDS: Acetaminophen 325 MG TABLET 650 MG PO ×3 (05:26→22:13)
[2025-01-13] MEDS: oxyCODONE HCl Immed Release 5 MG TABLET PO (05:26)
[2025-01-13 06:44] LABS: Creatinine Clr Calc Pharmacy 122.8; Estimated Glomerular Filt Rate > 60
[2025-01-13 06:46] LABS: Vancomycin Trough 9.7 mcg/mL (10.0-20.0)
--- NOTE | 2025-01-13 07:02 | HE.PHANOTE ---
Vancomycin Vancomycin Level 9.7 after 4 doses. Increasing dose to 1000 mg q8h, next level 01/14/25 @0600
[2025-01-13 07:50] LABS: HIV AB/AG Nonreactive (Nonreactive); HIV Num 1 0.07 S/CO (0.00-0.99); ~HepC Num1 0.12 S/CO (0.00-0.79); ~Hepatitis C Antibody Nonreactive (Nonreactive)
[2025-01-13] MEDS: 0.9 % Sodium Chloride Flush 3 ML SYRINGE IVFLUSH ×2 (08:50→16:57)
[2025-01-13] MEDS: vancomycin HCL 1,000 MG in 0.9 % Sodium Chloride 250 ML 270 MG IV ×3 (08:50→23:49)
[2025-01-13] MEDS: methADONE HCl 20 MG/2 ML ORAL.CONC 70 MG PO (08:50)
[2025-01-13 09:22] LABS: C Reactive Protein 5.63 mg/dL (< or = 0.50)
--- NOTE | 2025-01-13 10:33 | HO.ADDICTPRO ---
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) -Smoking crack cocaine --denies intentional opiate use, however aware that it was in the supply -Reports IVDU on 2 occasions -Denies history of overdose -Engaged in treatment for OUD in Aug/Sep 2024 when she noted increasing withdrawal sx --current dose 70mg -Denies alcohol use -Denies any other treatment for ASHLI, including ATS Today she is somewhat tearful, reporting ongoing pain in her shoulder and arm which she reports feels like pinching and cramping Denies any withdrawal sx Hepatitis C and HIV screen - Review of Systems Constitutional: Reports as per HPI, Reports lethargy and Reports malaise Gastrointestinal: Denies nausea Musculoskeletal: Reports back pain and Reports muscle cramps Psychiatric: Reports anxiety Mental Status Exam Mental Status Exam Patient Appearance: Appropriate Level of Consciousness: Awake, Appropriate and Alert Patient Behavior: Appropriate and Cooperative Mood Description: Anxious Affect Description: Anxious Speech Pattern: Clear Hallucinations: None Thought Content: positive for Intact Judgement: Good Diagnostics Vital Signs (24Hr): Vital Signs - 24 hr 01/12/25 14:43 01/12/25 17:50 01/12/25 19:10 Temperature 98.3 F 98.9 F Pulse Rate 67 66 Respiratory Rate 16 18 Blood Pressure 98/59 L 109/70 104/59 L Pulse Oximetry 98 95 Oxygen Delivery Method Room Air Room Air Oxygen Flow Rate 94 01/13/25 03:51 01/13/25 07:34 Temperature 97.7 F 98.8 F Pulse Rate 52 54 Respiratory Rate 18 16 Blood Pressure 111/66 115/71 Pulse Oximetry 98 98 Oxygen Delivery Method Room Air Room Air Oxygen Flow Rate BMI result Body Mass Index 18.8 Labs 01/12/25 05:25 01/13/25 05:54 Labs: Laboratory Results - last 48 hr 01/11/25 01/11/25 01/11/25 11:55 16:04 23:56 WBC 8.6 RBC 3.49 L Hgb 10.1 L Hct 30.9 L MCV 88.5 MCH 28.9 MCHC 32.7 RDW 14.6 Plt Count 448 H MPV 8.4 L Immature Gran % (Auto) 0.8 H Neut % (Auto) 83.4 H Lymph % (Auto) 10.4 L [place] % (Auto) 5.1 Eos % (Auto) 0.1 Baso % (Auto) 0.2 Lymph # (Auto) 0.9 L [place] # (Auto) 0.4 Eos # (Auto) 0.0 Baso # (Auto) 0.0 Abs Immat Gran (auto) 0.07 H Absolute Neuts (auto) 7.2 Absolute Nucleated RBC 0.000 Nucleated RBC % (auto) 0.0 ESR 104 H Sodium 141 Potassium 4.1 Chloride 103 Carbon Dioxide 27 Anion Gap 15 BUN 6 L Creatinine 0.59 Estim Creat Clear Calc 110.7 Estimated GFR > 60 Random Glucose 113 Lactic Acid 1.3 Calcium 8.9 Total Bilirubin 0.3 AST 37 H ALT 63 H Alkaline Phosphatase 136 H C-Reactive Protein Total Protein 7.1 Albumin 3.3 L Beta HCG, Quant < 2 Vancomycin Trough Urine Opiates Screen Ur Buprenorphine Scrn Ur Oxycodone Screen Urine Methadone Screen Urine Fentanyl Screen Ur Barbiturates Screen Ur Phencyclidine Scrn Ur Amphetamines Screen U Benzodiazepines Scrn Urine Cocaine Screen U Marijuana (THC) Screen Hepatitis C Ab (EIA) HIV 1&2 Ab/P24 Ag 4thGn 01/12/25 01/12/25 01/13/25 05:25 17:50 05:54 WBC 5.5 RBC 3.29 L Hgb 9.5 L Hct 29.5 L MCV 89.7 MCH 28.9 MCHC 32.2 RDW 14.7 Plt Count 401 H MPV 8.7 L Immature Gran % (Auto) 0.5 H Neut % (Auto) 66.5 Lymph % (Auto) 26.5 [place] % (Auto) 5.6 Eos % (Auto) 0.4 Baso % (Auto) 0.5 Lymph # (Auto) 1.5 [place] # (Auto) 0.3 Eos # (Auto) 0.0 Baso # (Auto) 0.0 Abs Immat Gran (auto) 0.03 Absolute Neuts (auto) 3.7 Absolute Nucleated RBC 0.000 Nucleated RBC % (auto) 0.0 ESR Sodium 144 Potassium 3.7 Chloride 111 H Carbon Dioxide 24 Anion Gap 13 BUN 11 Creatinine 0.54 0.55 Estim Creat Clear Calc 125.0 122.8 Estimated GFR > 60 > 60 Random Glucose 109 Lactic Acid Calcium 8.1 L D Total Bilirubin AST ALT Alkaline Phosphatase C-Reactive Protein 5.63 H Total Protein Albumin Beta HCG, Quant Vancomycin Trough 9.7 L Urine Opiates Screen POSITIVE H Ur Buprenorphine Scrn Not Detected Ur Oxycodone Screen Not Detected Urine Methadone Screen Positive H Urine Fentanyl Screen POSITIVE H Ur Barbiturates Screen Not Detected Ur Phencyclidine Scrn Not Detected Ur Amphetamines Screen Not Detected U Benzodiazepines Scrn POSITIVE H Urine Cocaine Screen POSITIVE H U Marijuana (THC) Screen POSITIVE H Hepatitis C Ab (EIA) Nonreactive HIV 1&2 Ab/P24 Ag 4thGn Nonreactive Imaging Radiology Impressions: ITS Impressions Lumbar Spine X-Ray 01/11/25 12:50 IMPRESSION: Unremarkable examination of the lumbar spine. Electronically signed by: Teodoro Hawk MD 01/11/2025 01:56 PM EDT RP Cervical Spine CT 01/11/25 12:57 IMPRESSION: 1. Permeative and erosive endplate changes at C5-6 and to a greater degree at C6-7, with endplate osteopenia and associated marked prevertebral soft tissue swelling and edema. Findings are highly suspicious for acute discitis/osteomyelitis, possibly of both C5-6 and C6-7. MRI recommended for further characterization. 2. No fracture or traumatic malalignment of the cervical spine. Emergent findings were discussed with Dr. Sarmiento of the [facility] via phone call at 15:24, 01/11/2025, with findings understood. Electronically signed by: Jose Watkins MD 01/11/2025 03:31 PM EDT RP Chest X-Ray 01/11/25 13:30 IMPRESSION: Normal examination of the chest. Electronically signed by: Teodoro Hawk MD 01/11/2025 01:54 PM EDT RP Head CT 01/11/25 14:34 IMPRESSION: Unremarkable unenhanced head CT. Electronically signed by: Teodoro Hawk MD 01/11/2025 03:18 PM EDT RP Medications Medications Current Medications Acetaminophen (Acetaminophen 325 Mg Tablet) 650 mg PO Q6H PRN PRN Reason: Pain, Mild 1-3,fever,headache Last Admin: 01/13/25 05:26 Dose: 650 mg Calcium Carbonate (Calcium Carbonate 750 Mg Tab.Chew) 750 mg PO Q4H PRN PRN Reason: Heartburn Clonidine HCl (Clonidine Hcl 0.1 Mg Tablet) 0.1 mg PO TID PRN; Protocol PRN Reason: Opiate Withdrawal Enoxaparin Sodium (Enoxaparin Sodium 40 Mg/0.4 Ml Syringe) 40 mg SUBCUT Q24H [facility] Last Admin: 01/12/25 22:49 Dose: Not Given Hydroxyzine HCl (Hydroxyzine Hcl 10 Mg Tablet) 10 mg PO Q8H PRN PRN Reason: anxiety/restlessness Last Admin: 01/12/25 22:42 Dose: 10 mg Piperacillin Sod/Tazobactam (Sod 4.5 gm/ Sodium Chloride) 100 mls @ 200 mls/hr IV Q6H [facility] Last Infusion: 01/13/25 05:17 Dose: Infused Vancomycin HCl 1,000 mg/ (Sodium Chloride) 270 mls @ 270 mls/hr IV Q8H [facility] Last Infusion: 01/13/25 09:50 Dose: Infused Magnesium Hydroxide (Milk Of Magnesia 30 Ml Oral.Susp) 30 ml PO DAILY PRN PRN Reason: Constipation Melatonin (Melatonin 3 Mg Tablet) 6 mg PO BEDTIME PRN PRN Reason: Insomnia Last Admin: 01/12/25 01:51 Dose: 6 mg Methadone HCl (Methadone Hcl 20 Mg/2 Ml Oral.Conc) 70 mg PO DAILY [facility] Last Admin: 01/13/25 08:50 Dose: 70 mg Morphine Sulfate (Morphine Sulfate 4 Mg/Ml Cartridge) 4 mg IVPUSH Q4H PRN; Protocol PRN Reason: Pain, Severe (Pain Scale 7-10) Last Admin: 01/13/25 08:49 Dose: 4 mg Ondansetron HCl (Ondansetron Hcl 4 Mg/2 Ml Vial) 4 mg IVPUSH Q8H PRN PRN Reason: Nausea and Vomiting Oxycodone HCl (Oxycodone Hcl Immed Release 5 Mg Tablet) 5 mg PO Q6H PRN PRN Reason: Pain, Moderate(Pain Scale 4-6) Last Admin: 01/13/25 05:26 Dose: 5 mg Pharmacy Consult (Consult Rx Vancomycin Dosing) 1 each MISCELLANE DAILY PRN PRN Reason: Consult order Sodium Chloride (0.9 % Sodium Chloride Flush 3 Ml Syringe) 3 ml IVFLUSH QSHIFT [facility] Last Admin: 01/13/25 08:50 Dose: 3 ml Allergies Allergies Allergy/AdvReac Type Severity Reaction Status Date / Time No Known Allergies Allergy Verified 01/11/25 10:47 Assessment & Plan Assessment & Plan (1) Opioid use disorder: Status: Acute Code(s): F11.90 - Opioid use, unspecified, uncomplicated Assessment and Plan: continue methadone at current dose continue to offer PRNs as appropriate already connected to [facility] Total time managing care of this patient today __35__ minutes.
--- NOTE | 2025-01-13 12:13 | HO.PM.IMPN ---
Subjective Subjective Date of Service: 01/13/25 Interval History: no fever c/o severe neck pain Review of Systems Review of Systems: Yes all other systems are reviewed and are negative Physical Exam Vital Signs: Vital Signs: Last Vital Signs Temp 98.8 F 01/13/25 07:34 Pulse 54 01/13/25 07:34 Resp 16 01/13/25 07:34 BP 115/71 01/13/25 07:34 Pulse Ox 98 01/13/25 07:34 O2 Del Method Room Air 01/13/25 07:34 O2 Flow Rate 94 01/12/25 19:10 BMI result Body Mass Index 18.8 Gen: in no acute distress HEENT: sclera anicteric, moist mucus membranes Neck: tender over C-spine Lungs: clear to auscultation bilaterally Heart: regular rate and rhythm, systolic murmur along LSB Abd: soft, non-tender, non-distended Ext: no edema Skin: warm/well-perfused Neuro: alert and oriented x3, no focal findings Psych: appropriate affect Objective Data Active Medications Acetaminophen (Acetaminophen 325 Mg Tablet) 650 mg PO Q6H PRN PRN Reason: Pain, Mild 1-3,fever,headache Last Admin: 01/13/25 05:26 Dose: 650 mg Documented By: JAD Calcium Carbonate (Calcium Carbonate 750 Mg Tab.Chew) 750 mg PO Q4H PRN PRN Reason: Heartburn Clonidine HCl (Clonidine Hcl 0.1 Mg Tablet) 0.1 mg PO TID PRN; Protocol PRN Reason: Opiate Withdrawal Enoxaparin Sodium (Enoxaparin Sodium 40 Mg/0.4 Ml Syringe) 40 mg SUBCUT Q24H [facility] Last Admin: 01/12/25 22:49 Dose: Not Given Documented By: JAD Non-Admin Reason: Patient Refused Hydroxyzine HCl (Hydroxyzine Hcl 10 Mg Tablet) 10 mg PO Q8H PRN PRN Reason: anxiety/restlessness Last Admin: 01/12/25 22:42 Dose: 10 mg Documented By: JAD Piperacillin Sod/Tazobactam (Sod 4.5 gm/ Sodium Chloride) 100 mls @ 200 mls/hr IV Q6H [facility] Last Infusion: 01/13/25 11:20 Dose: Infused Documented By: NEWTON Vancomycin HCl 1,000 mg/ (Sodium Chloride) 270 mls @ 270 mls/hr IV Q8H [facility] Last Infusion: 01/13/25 09:50 Dose: Infused Documented By: NEWTON Magnesium Hydroxide (Milk Of Magnesia 30 Ml Oral.Susp) 30 ml PO DAILY PRN PRN Reason: Constipation Melatonin (Melatonin 3 Mg Tablet) 6 mg PO BEDTIME PRN PRN Reason: Insomnia Last Admin: 01/12/25 01:51 Dose: 6 mg Documented By: LATRICIA Methadone HCl (Methadone Hcl 20 Mg/2 Ml Oral.Conc) 70 mg PO DAILY [facility] Last Admin: 01/13/25 08:50 Dose: 70 mg Documented By: NEWTON Co-signed By: KELLI Morphine Sulfate (Morphine Sulfate 4 Mg/Ml Cartridge) 4 mg IVPUSH Q4H PRN; Protocol PRN Reason: Pain, Severe (Pain Scale 7-10) Last Admin: 01/13/25 08:49 Dose: 4 mg Documented By: NEWTON Ondansetron HCl (Ondansetron Hcl 4 Mg/2 Ml Vial) 4 mg IVPUSH Q8H PRN PRN Reason: Nausea and Vomiting Oxycodone HCl (Oxycodone Hcl Immed Release 5 Mg Tablet) 5 mg PO Q6H PRN PRN Reason: Pain, Moderate(Pain Scale 4-6) Last Admin: 01/13/25 05:26 Dose: 5 mg Documented By: JAD Pharmacy Consult (Consult Rx Vancomycin Dosing) 1 each MISCELLANE DAILY PRN PRN Reason: Consult order Sodium Chloride (0.9 % Sodium Chloride Flush 3 Ml Syringe) 3 ml IVFLUSH QSKSFT [facility] Last Admin: 01/13/25 08:50 Dose: 3 ml Documented By: NEWTON Labs 01/12/25 05:25 01/13/25 05:54 Labs: Laboratory Results - last 24 hr 01/12/25 01/13/25 17:50 05:54 Estim Creat Clear Calc 122.8 Estimated GFR > 60 C-Reactive Protein 5.63 H Vancomycin Trough 9.7 L Urine Opiates Screen POSITIVE H Ur Buprenorphine Scrn Not Detected Ur Oxycodone Screen Not Detected Urine Methadone Screen Positive H Urine Fentanyl Screen POSITIVE H Ur Barbiturates Screen Not Detected Ur Phencyclidine Scrn Not Detected Ur Amphetamines Screen Not Detected U Benzodiazepines Scrn POSITIVE H Urine Cocaine Screen POSITIVE H U Marijuana (THC) Screen POSITIVE H Hepatitis C Ab (EIA) Nonreactive HIV 1&2 Ab/P24 Ag 4thGn Nonreactive Microbiology Microbiology Results: Microbiology 01/11/25 16:01 Blood Culture - Preliminary Blood - Venous Staphylococcus aureus 01/11/25 16:04 Blood Culture - Preliminary Blood - Venous No growth after 24 hours. 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 TTE 01/12/25: 1. Tricuspid valve vegetation with trace to mild tricuspid regurgitation 2. Normal LV ejection fraction of 60 65% 3. Thickened mitral valve, can not rule out vegetation on the mitral leaflets 4. Normal RV systolic pressure 5. No gross pericardial effusion - follow susceptibilities from blood cultures 01/11; repeat blood cultures today and if clear will place PICC line 01/15, needs at least 6 wk total IV vancomycin per ID consultation - pain control with morphine + oxycodone polysubstance abuse - continue methadone, Addiction Medicine consulted, HIV/HCV negative, HBV pending VTE ppx - enoxaparin dispo - will need STR In my clinical judgment, the patient requires continued inpatient hospitalization for the following reasons: IV ABX Total time managing care of this patient today: 40 minutes. Quality Stroke Does the patient have a stroke diagnosis?: No VTE Prior VTE?: No VTE Risk Level:: Medical - moderate - high VTE Device Contraindication: Treatment Not Indicated VTE Drug Contraindication: N/A - Med Ordered
[2025-01-13] MEDS: oxyCODONE HCl Immed Release 5 MG TABLET 10 MG PO ×3 (13:58→22:13)
--- NOTE | 2025-01-13 14:24 | HO.SKINPHOTO ---
Location:Left foot Category: Stage: Length: Width: Depth: cm Location: Category: Stage: Length: Width: Depth: cm Location: Category: Stage: Length: Width: Depth: cm Location: Category: Stage: Length: Width: Depth: cm Location: Category: Stage: Length: Width: Depth: cm Location: Category: Stage: Length: Width: Depth: cm
[2025-01-13] MEDS: hydrOXYzine HCL 10 MG TABLET PO (17:17)
[2025-01-13] MEDS: cloNIDine HCL 0.1 MG TABLET PO (20:48)
[2025-01-14] VITALS (8 sets, daily range): BP systolic 98–109; BP diastolic 57–78; PULSE 62–77; RESP 12–18; TEMP 36.2–37.2; O2SAT 97–100
[2025-01-14] MEDS: Morphine Sulfate 4 MG/ML CARTRIDGE IVPUSH ×4 (01:17→23:47)
[2025-01-14] MEDS: 0.9 % Sodium Chloride Flush 3 ML SYRINGE IVFLUSH ×4 (01:24→23:45)
[2025-01-14] MEDS: oxyCODONE HCl Immed Release 5 MG TABLET 10 MG PO ×5 (02:20→20:25)
[2025-01-14] MEDS: hydrOXYzine HCL 10 MG TABLET PO ×2 (02:23→12:21)
[2025-01-14 06:26] LABS: Creatinine Clr Calc Pharmacy 110.7; Estimated Glomerular Filt Rate > 60
[2025-01-14] MEDS: vancomycin HCL 1,000 MG in 0.9 % Sodium Chloride 250 ML 270 MG IV ×3 (07:47→23:47)
[2025-01-14] MEDS: Acetaminophen 325 MG TABLET 650 MG PO ×2 (07:48→16:42)
[2025-01-14] MEDS: methADONE HCl 20 MG/2 ML ORAL.CONC 70 MG PO (09:38)
--- NOTE | 2025-01-14 09:59 | HO.SKINPHOTO ---
Location:Left Foot Category: Stage: Length: Width: Depth: cm Location: Category: Stage: Length: Width: Depth: cm Location: Category: Stage: Length: Width: Depth: cm Location: Category: Stage: Length: Width: Depth: cm Location: Category: Stage: Length: Width: Depth: cm Location: Category: Stage: Length: Width: Depth: cm
--- NOTE | 2025-01-14 10:30 | HO.PM.IMPN ---
Subjective Subjective Date of Service: 01/14/25 Interval History: afebrile neck pain improved BCx 01/13 positive Review of Systems Review of Systems: Yes all other systems are reviewed and are negative Physical Exam Vital Signs: Vital Signs: Last Vital Signs Temp 98.8 F 01/14/25 07:45 Pulse 68 01/14/25 07:45 Resp 14 01/14/25 09:37 BP 103/62 01/14/25 07:45 Pulse Ox 99 01/14/25 07:45 O2 Del Method Room Air 01/14/25 07:45 O2 Flow Rate 94 01/12/25 19:10 BMI result Body Mass Index 18.8 Gen: in no acute distress HEENT: sclera anicteric, moist mucus membranes Neck: tender over C-spine Lungs: clear to auscultation bilaterally Heart: regular rate and rhythm, systolic murmur along LSB Abd: soft, non-tender, non-distended Ext: no edema Skin: warm/well-perfused Neuro: alert and oriented x3, no focal findings Psych: appropriate affect Objective Data Active Medications Acetaminophen (Acetaminophen 325 Mg Tablet) 650 mg PO Q6H PRN PRN Reason: Pain, Mild 1-3,fever,headache Last Admin: 01/14/25 07:48 Dose: 650 mg Documented By: RINA Calcium Carbonate (Calcium Carbonate 750 Mg Tab.Chew) 750 mg PO Q4H PRN PRN Reason: Heartburn Clonidine HCl (Clonidine Hcl 0.1 Mg Tablet) 0.1 mg PO TID PRN; Protocol PRN Reason: Opiate Withdrawal Last Admin: 01/13/25 20:48 Dose: 0.1 mg Documented By: JAD Enoxaparin Sodium (Enoxaparin Sodium 40 Mg/0.4 Ml Syringe) 40 mg SUBCUT Q24H [facility] Last Admin: 01/14/25 00:00 Dose: Not Given Documented By: MEGHAN Non-Admin Reason: Patient Refused Hydroxyzine HCl (Hydroxyzine Hcl 10 Mg Tablet) 10 mg PO Q8H PRN PRN Reason: anxiety/restlessness Last Admin: 01/14/25 02:23 Dose: 10 mg Documented By: MEGHAN Vancomycin HCl 1,000 mg/ (Sodium Chloride) 270 mls @ 270 mls/hr IV Q8H [facility] Last Infusion: 01/14/25 08:57 Dose: Infused Documented By: RINA Magnesium Hydroxide (Milk Of Magnesia 30 Ml Oral.Susp) 30 ml PO DAILY PRN PRN Reason: Constipation Melatonin (Melatonin 3 Mg Tablet) 6 mg PO BEDTIME PRN PRN Reason: Insomnia Last Admin: 01/12/25 01:51 Dose: 6 mg Documented By: LATRICIA Methadone HCl (Methadone Hcl 20 Mg/2 Ml Oral.Conc) 70 mg PO DAILY [facility] Last Admin: 01/14/25 09:38 Dose: 70 mg Documented By: RINA Co-signed By: NEWTON Morphine Sulfate (Morphine Sulfate 4 Mg/Ml Cartridge) 4 mg IVPUSH Q4H PRN; Protocol PRN Reason: Pain, Severe (Pain Scale 7-10) Last Admin: 01/14/25 09:37 Dose: 4 mg Documented By: RINA Ondansetron HCl (Ondansetron Hcl 4 Mg/2 Ml Vial) 4 mg IVPUSH Q8H PRN PRN Reason: Nausea and Vomiting Oxycodone HCl (Oxycodone Hcl Immed Release 5 Mg Tablet) 10 mg PO Q4H PRN PRN Reason: Pain, Moderate(Pain Scale 4-6) Last Admin: 01/14/25 07:49 Dose: 10 mg Documented By: RINA Pharmacy Consult (Consult Rx Vancomycin Dosing) 1 each MISCELLANE DAILY PRN PRN Reason: Consult order Sodium Chloride (0.9 % Sodium Chloride Flush 3 Ml Syringe) 3 ml IVFLUSH [facility] Last Admin: 01/14/25 08:57 Dose: 3 ml Documented By: RINA Labs 01/12/25 05:25 01/14/25 06:04 Labs: Laboratory Results - last 24 hr 01/14/25 06:04 Hold Purple Top SEE NOTE Estim Creat Clear Calc 110.7 Estimated GFR > 60 Vancomycin Trough 15.0 Microbiology Microbiology Results: Microbiology 01/13/25 08:49 Blood Culture - Preliminary Blood - Venous Prelim: GPC Gram Stain only 01/11/25 16:04 Blood Culture - Preliminary Blood - Venous No growth after 48 hours. 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 TTE 01/12/25: 1. Tricuspid valve vegetation with trace to mild tricuspid regurgitation 2. Normal LV ejection fraction of 60 65% 3. Thickened mitral valve, can not rule out vegetation on the mitral leaflets 4. Normal RV systolic pressure 5. No gross pericardial effusion - follow susceptibilities from blood cultures 01/11; repeat BCx 01/13 positive; repeat 01/15; PICC line once BCx clear; needs at least 6 wk total IV vancomycin [cefazolin if MSSA] per ID consultation - pain control with morphine + oxycodone polysubstance abuse - continue methadone, Addiction Medicine consulted, HIV/HCV negative, HBV pending VTE ppx - enoxaparin dispo - will need STR In my clinical judgment, the patient requires continued inpatient hospitalization for the following reasons: IV ABX Total time managing care of this patient today: 40 minutes. Quality Stroke Does the patient have a stroke diagnosis?: No VTE Prior VTE?: No VTE Risk Level:: Medical - moderate - high VTE Device Contraindication: Treatment Not Indicated VTE Drug Contraindication: N/A - Med Ordered
--- NOTE | 2025-01-14 11:34 | MHC.RECOVRN ---
Pt seen in follow up. Reporting methadone dose is effective. Still c/o pain but finds increase in oxycodone helpful. Reminded to ask for PRNs when necessary. Discussed with ALEX Carver.
--- NOTE | 2025-01-14 12:32 | PM.CNCAR ---
History of Present Illness History of Present Illness Date of Service: 01/14/25 Requesting physician: Feliberto Long Consult reason: other (Endocarditis) Chief complaint: back pain Narrative: I was consulted to see Angie in cardiology consultation today for tricuspid valve vegetation consistent with endocarditis. Patient is a 39 year female with prior history of polysubstance abuse and also IV drug abuse. She today tells me that she used after mother's that IV drugs couple months ago. She came to the hospital with back pain and was noted to have diskitis and paravertebral abscess. She also had blood cultures positive for bacteremia shows admitted to IV antibiotics. Repeat blood cultures were done yesterday which are also positive but species not identified. Patient is no longer febrile. She is very nervous about overall medical condition. She had an echocardiogram yesterday which is suggestive of tricuspid valve vegetation consistent with endocarditis. Mitral valve was thickened but no clear vegetation was identified. She has not had any heart failure symptoms. No hypotension. No obvious neurologic symptoms. Review of Systems Constitutional: Constitutional: Reports chills, Reports fatigue and Reports fever(s) Eyes: Eyes: Reports no additional eye complaints Cardiovascular: Cardiovascular: Reports no additional cardiovascular complaints Respiratory: Respiratory: Reports no additional respiratory complaints Gastrointestinal: Gastrointestinal: Reports no additional gastrointestinal complaints Genitourinary: Genitourinary: Reports no additional female genitourinary complaints Musculoskeletal: Musculoskeletal: Reports back pain Neurologic: Reports system reviewed and no additional complaints, except as documented Psychiatric: Psychiatric: Reports no additional psychiatric complaints Endocrine: Endocrine: Reports fatigue PMFSH Past Medical History Medical History Bacteremia Polysubstance use disorder Family History Family history: reviewed and not pertinent Social History Social History Household Members: Children Housing: House Do you presently have visiting nurse or other home services: No Comment: patient steady on feet, rings appropriately Patient Tobacco Use Status: Never used Tobacco Substance Use Type: Crack/Cocaine service: No Meds Allergies Allergy/AdvReac Type Severity Reaction Status Date / Time No Known Allergies Allergy Verified 01/11/25 10:47 Active Medications: Current Medications Acetaminophen (Acetaminophen 325 Mg Tablet) 650 mg PO Q6H PRN PRN Reason: Pain, Mild 1-3,fever,headache Last Admin: 01/14/25 07:48 Dose: 650 mg Calcium Carbonate (Calcium Carbonate 750 Mg Tab.Chew) 750 mg PO Q4H PRN PRN Reason: Heartburn Clonidine HCl (Clonidine Hcl 0.1 Mg Tablet) 0.1 mg PO TID PRN; Protocol PRN Reason: Opiate Withdrawal Last Admin: 01/13/25 20:48 Dose: 0.1 mg Enoxaparin Sodium (Enoxaparin Sodium 40 Mg/0.4 Ml Syringe) 40 mg SUBCUT Q24H [facility] Last Admin: 01/14/25 00:00 Dose: Not Given Hydroxyzine HCl (Hydroxyzine Hcl 10 Mg Tablet) 10 mg PO Q8H PRN PRN Reason: anxiety/restlessness Last Admin: 01/14/25 12:21 Dose: 10 mg Vancomycin HCl 1,000 mg/ (Sodium Chloride) 270 mls @ 270 mls/hr IV Q8H [facility] Last Infusion: 01/14/25 08:57 Dose: Infused Magnesium Hydroxide (Milk Of Magnesia 30 Ml Oral.Susp) 30 ml PO DAILY PRN PRN Reason: Constipation Melatonin (Melatonin 3 Mg Tablet) 6 mg PO BEDTIME PRN PRN Reason: Insomnia Last Admin: 01/12/25 01:51 Dose: 6 mg Methadone HCl (Methadone Hcl 20 Mg/2 Ml Oral.Conc) 70 mg PO DAILY [facility] Last Admin: 01/14/25 09:38 Dose: 70 mg Morphine Sulfate (Morphine Sulfate 4 Mg/Ml Cartridge) 4 mg IVPUSH Q4H PRN; Protocol PRN Reason: Pain, Severe (Pain Scale 7-10) Last Admin: 01/14/25 09:37 Dose: 4 mg Ondansetron HCl (Ondansetron Hcl 4 Mg/2 Ml Vial) 4 mg IVPUSH Q8H PRN PRN Reason: Nausea and Vomiting Oxycodone HCl (Oxycodone Hcl Immed Release 5 Mg Tablet) 10 mg PO Q4H PRN PRN Reason: Pain, Moderate(Pain Scale 4-6) Last Admin: 01/14/25 12:20 Dose: 10 mg Pharmacy Consult (Consult Rx Vancomycin Dosing) 1 each MISCELLANE DAILY PRN PRN Reason: Consult order Sodium Chloride (0.9 % Sodium Chloride Flush 3 Ml Syringe) [facility] Last Admin: 01/14/25 08:57 Dose: 3 ml Home Medications ?Medication ?Instructions ?Recorded ?Confirmed ?Last Taken ?Type methadone 10 mg/mL oral 70 mg PO DAILY 01/11/25 01/11/25 01/03/25 History concentrate (Methadone Intensol) ibuprofen 200 mg tablet 400 mg PO Q8H PRN Pain 01/12/25 01/12/25 Unknown History melatonin 3 mg tablet 9 mg PO BEDTIME 01/12/25 01/12/25 Unknown History Physical Exam Vital Signs: Vital Signs: Last Vital Signs Temp 98.8 F 01/14/25 07:45 Pulse 68 01/14/25 07:45 Resp 14 01/14/25 09:37 BP 103/62 01/14/25 07:45 Pulse Ox 99 01/14/25 07:45 O2 Del Method Room Air 01/14/25 07:45 O2 Flow Rate 94 01/12/25 19:10 BMI result Body Mass Index 18.8 Const: General: cooperative, comfortable, no acute distress, alert, awake and anxious Nutritional Appearance: thin Orientation/consciousness: patient oriented x3 HEENT: Head: Yes normocephalic and Yes atraumatic Neck: Neck: Yes trachea midline, Yes supple and Yes no JVD Resp: Effort & Inspection: normal respiratory effort Auscultation: clear to auscultation bilaterally Cardio: Jugular venous distension: no JVD Rate: regular rate Rhythm: regular rhythm Heart sounds: S1 normal heart sound present, S2 normal heart sound present, no click, no gallops, no murmurs and no rubs GI: Auscultation: normal bowel sounds Skin: General skin exam: petechiae Neuro: General: patient oriented x3 and no focal motor deficits Extrem: General: Yes no clubbing, cyanosis or edema Psych: Appearance: grossly normal Affect: Anxious affect present Objective Labs and Meds 01/12/25 05:25 01/14/25 06:04 Lab results: Laboratory Results - last 24 hr 01/14/25 06:04 Hold Purple Top SEE NOTE Creatinine 0.61 Estim Creat Clear Calc 110.7 Estimated GFR > 60 Vancomycin Trough 15.0 Assessment and Plan (1) Endocarditis: Status: Acute Patient admitted back pain noted to have diskitis and paravertebral abscess and echo findings suggestive of tricuspid valve endocarditis without any significant tricuspid regurgitation. She has no obvious septic pulmonary emboli or any neurologic manifestations or any significant valvular abnormality or heart failure. No persistent hypotension of fever. She does have persistent bacteremia. At this point time I would suggest her to continued IV antibiotics. I would suggest a MARIAH as well as concern for mitral valve involvement on the transthoracic echo although not entirely ruled out. We discussed about the need for MARIAH including risks, benefits, alternatives. She is nervous but understands. She will need addiction medicine consultation to assist with her addiction to prevent recurrent events. Will schedule MARIAH once available for scheduling in the OR Procedures Date of Service Date of Service: 01/14/25
[2025-01-14] MEDS: cloNIDine HCL 0.1 MG TABLET PO (20:25)
[2025-01-15] MEDS: oxyCODONE HCl Immed Release 5 MG TABLET 10 MG PO ×3 (00:49→10:33)
[2025-01-15] MEDS: Acetaminophen 325 MG TABLET 650 MG PO ×3 (00:50→20:00)
[2025-01-15 04:08] LABS: HBS Num1 58.81 mIU/mL (0-7.99); HBsAGNum1 0.34 S/CO (0.00-0.99); Hepatitis B Core Antibody Nonreactive (Nonreactive); Hepatitis B Surface Antigen Negative (Negative); ~Hepatitis B Surface Antibody REACTIVE (Nonreactive)
[2025-01-15 06:55] LABS: Creatinine Clr Calc Pharmacy 103.9; Estimated Glomerular Filt Rate > 60; Vancomycin Trough 13.9 mcg/mL (10.0-20.0)
[2025-01-15 06:58] LABS: Hematocrit 29.8 % (37.0-47.0); Hemoglobin 9.2 g/dl (12.0-16.0); Mean Corpuscular HGB Conc 30.9 g/dl (31.0-35.0); Mean Corpuscular Hemoglobin 28.7 pg (27.0-33.0); Mean Corpuscular Volume 92.8 fL (80.0-98.0); Mean Platelet Volume 8.6 fL (9.4-12.3); Platelet Count 393 X10*3/uL (160-400); Red Blood Count 3.21 X10*6/uL (4.20-5.50); Red Cell Distribution Width 14.8 % (11.0-16.0); White Blood Count 4.9 X10*3/uL (4.8-10.8)
--- NOTE | 2025-01-15 07:04 | HE.PHANOTE ---
RE: VANCO DOSING Trough came back as 13.9 mg/L and renal function is stable. Dose is increased to 1250 mg q8h, next trough is scheduled for 01/16/25 @0600.
[2025-01-15] MEDS: 0.9 % Sodium Chloride Flush 3 ML SYRINGE IVFLUSH ×3 (07:21→18:39)
[2025-01-15] MEDS: vancomycin HCL 1,250 MG in 0.9 % Sodium Chloride 250 ML 166.67 MG IV ×3 (07:22→23:42)
[2025-01-15] MEDS: Morphine Sulfate 4 MG/ML CARTRIDGE IVPUSH ×3 (07:25→18:39)
[2025-01-15 07:26] VITALS: BP 97/58; PULSE 62; RESP 16; TEMP 37.1; O2SAT 100
[2025-01-15] MEDS: methADONE HCl 20 MG/2 ML ORAL.CONC 70 MG PO (08:03)
[2025-01-15] MEDS: hydrOXYzine HCL 10 MG TABLET PO ×2 (08:37→20:01)
--- NOTE | 2025-01-15 11:36 | MHC.RECOVRN ---
Met with pt in 380-1 to follow up and provide support.? Pt awake, alert, easily engages in conversation, sitting up in bed. ? Pt reports that she continues to have a fair amount of pain in right neck, shoulder and scapula area that she describes as tight and pulling. T/W reviewed pt's current options for pain meds and pt reports that the oxy is working better than the morphine. She reports physician was in this AM and stated he was going to increase the oxy by another 5mg. T/W reviewed and encouraged non pharm interventions for pain with pt. like heat and ice. Pt currently receiving 70mg methadone for OUD with good effect. No W/D or cravings reported or observed. Pt denies other concerns at this time.? T/w available as needed.
--- NOTE | 2025-01-15 13:46 | MHC.CLN ---
F/U DIET=REGULAR. ENSURE TID PROVIDES 1050 KCALS, 60 G PROTEIN. INTAKE VARIABLE WITH MOST MEALS 50% OR GREATER. FOLLOW FOR PO INTAKE AND ENCOURAGE SUPPLEMENT ABLE.
--- NOTE | 2025-01-15 14:24 | MHC.CM.PN ---
Per MD rounds not medically cleared for dc at this time. Will need SNF for 6 wks IV vanco. Discussed w/ patient who is amenable and accepted a bed at [facility]. MDS/PASRR completed and faxed to [facility]. Will need guest dosing arranged, HCP, and dc summary w/ less than 30 sent to [facility]. CM will continue to follow.
[2025-01-15] MEDS: oxyCODONE HCl Immed Release 15 MG TABLET PO ×2 (14:51→20:00)
--- NOTE | 2025-01-15 15:18 | PM.PNCARD ---
Subjective Subjective Date of Service: 01/15/25 Interval history: Seen examined at bedside. Complaining of neck and back pain. Physical Exam Vital Signs: Last Vital Signs Temp 98.8 F 01/15/25 07:26 Pulse 62 01/15/25 07:26 Resp 16 01/15/25 07:26 BP 97/58 L 01/15/25 07:26 Pulse Ox 100 01/15/25 07:26 O2 Del Method Room Air 01/15/25 07:26 O2 Flow Rate 94 01/12/25 19:10 BMI result Body Mass Index 18.8 GENERAL APPEARANCE: Complaining of neck pain, in distress. NECK: no carotid bruit, no jugular venous distention. HEART: no murmurs, regular rate and rhythm. LUNGS: clear to auscultation bilaterally. ABDOMEN: soft, nontender. EXTREMITIES: no edema. PERIPHERAL PULSES: equal. NEUROLOGIC: No gross deficits, AAO X 3 Objective Labs and Meds 01/15/25 06:28 01/15/25 06:23 Lab results: Laboratory Results - last 24 hr 01/14/25 01/15/25 01/15/25 06:04 06:23 06:28 WBC 4.9 RBC 3.21 L Hgb 9.2 L Hct 29.8 L MCV 92.8 MCH 28.7 MCHC 30.9 L RDW 14.8 Plt Count 393 MPV 8.6 L Absolute Nucleated RBC 0.000 Nucleated RBC % (auto) 0.0 Creatinine 0.65 Estim Creat Clear Calc 103.9 Estimated GFR > 60 Vancomycin Trough 13.9 Hep Bs Antigen Negative Hep Bs Antibody REACTIVE Hep B Core Total Ab Nonreactive Progress Note: A&P Assessment and plan (1) Bacteremia: Status: Acute (2) Discitis: Status: Acute (3) Opioid use disorder: Status: Acute Plan [age] year female with tricuspid valve vegetation with mild tricuspid regurgitation. Thickened mitral valve can not rule out vegetation. She had 1/2 blood cultures positive for staph aureus. She has diskitis and osteomyelitis and C6-7 spine. On appropriate antibiotics. Not in heart failure and has no regurgitant murmurs right now. She had repeat blood cultures done today. If they are negative then I would favor continuing antibiotics and would not do a MARIAH. We will follow along with you. Thank you for allowing me to participate in the care of your patient. Please feel free to contact me if you have any questions. Time Spent With Patient Time: Total time managing care of this patient today ____ minutes. Progress Note: Quality Stroke Does the patient have a stroke diagnosis?: No Procedures Date of Service Date of Service: 01/15/25
[2025-01-15 16:00] VITALS: BP 97/54; PULSE 61; RESP 18; TEMP 37.7; O2SAT 99
--- NOTE | 2025-01-15 16:10 | HO.PM.IMPN ---
Subjective Subjective Date of Service: 01/15/25 Interval History: No acute issues overnight. Pain control poor per patient Review of Systems Denies chest pain Denies shortness of breath Denies nausea vomiting diarrhea Denies fever chills Physical Exam Vital Signs: Vital Signs: Last Vital Signs Temp 98.8 F 01/15/25 07:26 Pulse 62 01/15/25 07:26 Resp 16 01/15/25 07:26 BP 97/58 L 01/15/25 07:26 Pulse Ox 100 01/15/25 07:26 O2 Del Method Room Air 01/15/25 07:26 O2 Flow Rate 94 01/12/25 19:10 BMI result Body Mass Index 18.8 Const: Other: Awake alert no acute distress Resp: Other: Clear to auscultation bilaterally no rales rhonchi or wheezes Cardio: Other: No S4; positive S1-S2; no S3 murmurs rubs or gallops GI: Other: Soft nontender nondistended normoactive bowel sounds Extrem: Other: No edema bilaterally Objective Data Active Medications Acetaminophen (Acetaminophen 325 Mg Tablet) 650 mg PO Q6H PRN PRN Reason: Pain, Mild 1-3,fever,headache Last Admin: 01/15/25 10:33 Dose: 650 mg Documented By: CATY Calcium Carbonate (Calcium Carbonate 750 Mg Tab.Chew) 750 mg PO Q4H PRN PRN Reason: Heartburn Clonidine HCl (Clonidine Hcl 0.1 Mg Tablet) 0.1 mg PO TID PRN; Protocol PRN Reason: Opiate Withdrawal Last Admin: 01/14/25 20:25 Dose: 0.1 mg Documented By: JAD Enoxaparin Sodium (Enoxaparin Sodium 40 Mg/0.4 Ml Syringe) 40 mg SUBCUT Q24H [facility] Last Admin: 01/14/25 23:49 Dose: Not Given Documented By: JAD Non-Admin Reason: Patient Refused Hydroxyzine HCl (Hydroxyzine Hcl 10 Mg Tablet) 10 mg PO Q8H PRN PRN Reason: anxiety/restlessness Last Admin: 01/15/25 08:37 Dose: 10 mg Documented By: CATY Vancomycin HCl 1,250 mg/ (Sodium Chloride) 250 mls @ 166.667 mls/hr IV Q8H [facility] Last Admin: 01/15/25 15:13 Dose: 166.67 mls/hr Documented By: CATY Magnesium Hydroxide (Milk Of Magnesia 30 Ml Oral.Susp) 30 ml PO DAILY PRN PRN Reason: Constipation Melatonin (Melatonin 3 Mg Tablet) 6 mg PO BEDTIME PRN PRN Reason: Insomnia Last Admin: 01/12/25 01:51 Dose: 6 mg Documented By: LATRICIA Methadone HCl (Methadone Hcl 20 Mg/2 Ml Oral.Conc) 70 mg PO DAILY [facility] Last Admin: 01/15/25 08:03 Dose: 70 mg Documented By: CATY Co-signed By: JOB Morphine Sulfate (Morphine Sulfate 4 Mg/Ml Cartridge) 4 mg IVPUSH Q6H PRN; Protocol PRN Reason: Pain, Severe (Pain Scale 7-10) Ondansetron HCl (Ondansetron Hcl 4 Mg/2 Ml Vial) 4 mg IVPUSH Q8H PRN PRN Reason: Nausea and Vomiting Oxycodone HCl (Oxycodone Hcl Immed Release 15 Mg Tablet) 15 mg PO Q4H PRN PRN Reason: Pain, Moderate(Pain Scale 4-6) Last Admin: 01/15/25 14:51 Dose: 15 mg Documented By: CATY Pharmacy Consult (Consult Rx Vancomycin Dosing) 1 each MISCELLANE DAILY PRN PRN Reason: Consult order Sodium Chloride (0.9 % Sodium Chloride Flush 3 Ml Syringe) [facility] Last Admin: 01/15/25 12:32 Dose: 3 ml Documented By: CATY Labs 01/15/25 06:28 01/15/25 06:23 Labs: Laboratory Results - last 24 hr 01/14/25 01/15/25 01/15/25 06:04 06:23 06:28 MCV 92.8 MCH 28.7 MCHC 30.9 L RDW 14.8 Plt Count 393 MPV 8.6 L Absolute Nucleated RBC 0.000 Nucleated RBC % (auto) 0.0 Estim Creat Clear Calc 103.9 Estimated GFR > 60 Vancomycin Trough 13.9 Hep Bs Antigen Negative Hep Bs Antibody REACTIVE Hep B Core Total Ab Nonreactive Microbiology Microbiology Results: Microbiology 01/13/25 08:45 Blood Culture - Preliminary Blood - Venous No growth after 48 hours. 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 TTE 01/12/25: 1. Tricuspid valve vegetation with trace to mild tricuspid regurgitation 2. Normal LV ejection fraction of 60 65% 3. Thickened mitral valve, can not rule out vegetation on the mitral leaflets 4. Normal RV systolic pressure 5. No gross pericardial effusion - follow susceptibilities from blood cultures 01/11; repeat BCx 01/13 positive; repeat 01/15; PICC line once BCx clear; needs at least 6 wk total IV vancomycin [cefazolin if MSSA] per ID consultation.PICC when cultures negative - pain control with morphine + oxycodone -discussed with Cardiology; repeat blood cultures drawn today. If negative would not do MARIAH and continue antibiotic treatment. If positive ...will schedule MARIAH 2.Polysubstance abuse - continue methadone Enoxaparin Full Code dispo - will need STR In my clinical judgment, the patient requires continued inpatient hospitalization for the following reasons: IV ABX Quality Stroke Does the patient have a stroke diagnosis?: No VTE Prior VTE?: No VTE Risk Level:: Medical - moderate - high VTE Device Contraindication: Treatment Not Indicated VTE Drug Contraindication: N/A - Med Ordered
[2025-01-15 19:40] VITALS: BP 104/56; PULSE 71; RESP 18; TEMP 36.5; O2SAT 100
[2025-01-15] MEDS: Melatonin 3 MG TABLET 6 MG PO (20:01)
[2025-01-16] MEDS: Acetaminophen 325 MG TABLET 650 MG PO ×3 (03:29→23:59)
[2025-01-16] MEDS: oxyCODONE HCl Immed Release 15 MG TABLET PO ×6 (03:29→23:55)
[2025-01-16 03:33] VITALS: BP 99/55; PULSE 61; RESP 17; TEMP 36.6; O2SAT 98
[2025-01-16 06:42] LABS: MANUAL DIFF FLAG NO
[2025-01-16 06:50] LABS: Basophils Percent Auto 0.7 % (0-2); Eosinophils Percent Auto 0.5 % (0-4); Hemoglobin 8.6 g/dl (12.0-16.0); Imm Gran Abs Auto 0.03 X10*3/uL (0.00-0.03); Imm Gran Pct Auto 0.5 % (0.0-0.4); Lymphocytes Absolute Auto 1.2 X10*3/uL (1.2-4.9); Lymphocytes Percent Auto 20.5 % (20-40); Mean Corpuscular HGB Conc 30.7 g/dl (31.0-35.0); Mean Corpuscular Hemoglobin 28.4 pg (27.0-33.0); Mean Corpuscular Volume 92.4 fL (80.0-98.0); Monocytes Absolute Auto 0.3 X10*3/uL (0.1-1.2); Monocytes Percent Auto 5.4 % (2-11); Neutrophils Absolute Auto 4.1 x10*3/uL (2.0-8.3); Neutrophils Percent Auto 72.4 % (45-73); Platelet Count 455 X10*3/uL (160-400); Red Blood Count 3.03 X10*6/uL (4.20-5.50); Red Cell Distribution Width 14.6 % (11.0-16.0); White Blood Count 5.7 X10*3/uL (4.8-10.8)
[2025-01-16 06:58] LABS: Vancomycin Random 18.7 mcg/mL (15-20)
[2025-01-16 07:07] LABS: Alkaline Phosphatase 91 U/L (39-117); Anion Gap 12 (12-20); Aspartate Amino Transferase 22 U/L (5-31); Bilirubin Total 0.1 mg/dL (0.0-1.0); Blood Urea Nitrogen 8 mg/dL (9-16); Calcium 8.4 mg/dL (8.4-10.2); Carbon Dioxide 29 mmol/L (22-29); Chloride 103 mmol/L (96-108); Creatinine Clr Calc Pharmacy 105.5; Estimated Glomerular Filt Rate > 60; Glucose Fasting 88 mg/dL (60-99); Potassium 4.6 mmol/L (3.3-5.1); Sodium 139 mmol/L (135-145); Total Protein 6.2 g/dL (6.5-8.0)
[2025-01-16 07:19] LABS: Alanine Aminotransferase 30 U/L (0-31)
[2025-01-16] MEDS: 0.9 % Sodium Chloride Flush 3 ML SYRINGE IVFLUSH ×3 (07:28→23:57)
[2025-01-16] MEDS: vancomycin HCL 1,000 MG in 0.9 % Sodium Chloride 250 ML 270 MG IV ×2 (07:29→23:56)
[2025-01-16 07:32] VITALS: BP 102/56; PULSE 59; RESP 18; TEMP 36.4; O2SAT 100
[2025-01-16] MEDS: hydrOXYzine HCL 10 MG TABLET PO ×3 (08:12→23:55)
[2025-01-16] MEDS: methADONE HCl 20 MG/2 ML ORAL.CONC 70 MG PO (08:12)
--- NOTE | 2025-01-16 10:55 | PC.NURSE ---
D/C Morphine per MD.
--- NOTE | 2025-01-16 15:02 | P.PNIM_ITS ---
Subjective Subjective Date of Service: 01/16/25 Interval History: No acute issues overnight. Pain control adequate Review of Systems Denies chest pain Denies shortness of breath Denies nausea vomiting diarrhea Denies fever chills Physical Exam 2 Vital Signs: Vital Signs: Last Vital Signs Temp 97.5 F 01/16/25 07:32 Pulse 59 01/16/25 07:32 Resp 18 01/16/25 07:32 BP 102/56 L 01/16/25 07:32 Pulse Ox 100 01/16/25 07:32 O2 Del Method Room Air 01/16/25 07:32 O2 Flow Rate 94 01/12/25 19:10 BMI result Body Mass Index 18.8 Const: Other: Awake alert no acute distress Resp: Other: Clear to auscultation bilaterally no rales rhonchi or wheezes Cardio: Other: No S4; positive S1-S2; no S3 murmurs rubs or gallops GI: Other: Soft nontender nondistended normoactive bowel sounds Extrem: Other: No edema bilaterally Objective Data Active Medications Acetaminophen (Acetaminophen 325 Mg Tablet) 650 mg PO Q6H PRN PRN Reason: Pain, Mild 1-3,fever,headache Last Admin: 01/16/25 03:29 Dose: 650 mg Documented By: LATRICIA Calcium Carbonate (Calcium Carbonate 750 Mg Tab.Chew) 750 mg PO Q4H PRN PRN Reason: Heartburn Clonidine HCl (Clonidine Hcl 0.1 Mg Tablet) 0.1 mg PO TID PRN; Protocol PRN Reason: Opiate Withdrawal Last Admin: 01/14/25 20:25 Dose: 0.1 mg Documented By: JAD Enoxaparin Sodium (Enoxaparin Sodium 40 Mg/0.4 Ml Syringe) 40 mg SUBCUT Q24H [facility] Last Admin: 01/15/25 23:09 Dose: Not Given Documented By: LATRICIA Non-Admin Reason: Patient Refused Hydroxyzine HCl (Hydroxyzine Hcl 10 Mg Tablet) 10 mg PO Q8H PRN PRN Reason: anxiety/restlessness Last Admin: 01/16/25 08:12 Dose: 10 mg Documented By: CATY Vancomycin HCl 1,000 mg/ (Sodium Chloride) 270 mls @ 270 mls/hr IV Q8H [facility] Last Infusion: 01/16/25 08:34 Dose: Infused Documented By: CATY Magnesium Hydroxide (Milk Of Magnesia 30 Ml Oral.Susp) 30 ml PO DAILY PRN PRN Reason: Constipation Melatonin (Melatonin 3 Mg Tablet) 6 mg PO BEDTIME PRN PRN Reason: Insomnia Last Admin: 01/15/25 20:01 Dose: 6 mg Documented By: LATRICIA Methadone HCl (Methadone Hcl 20 Mg/2 Ml Oral.Conc) 70 mg PO DAILY [facility] Last Admin: 01/16/25 08:12 Dose: 70 mg Documented By: CATY Co-signed By: RENA Ondansetron HCl (Ondansetron Hcl 4 Mg/2 Ml Vial) 4 mg IVPUSH Q8H PRN PRN Reason: Nausea and Vomiting Oxycodone HCl (Oxycodone Hcl Immed Release 15 Mg Tablet) 15 mg PO Q4H PRN PRN Reason: Pain, Moderate(Pain Scale 4-6) Last Admin: 01/16/25 11:43 Dose: 15 mg Documented By: CATY Pharmacy Consult (Consult Rx Vancomycin Dosing) 1 each MISCELLANE DAILY PRN PRN Reason: Consult order Sodium Chloride (0.9 % Sodium Chloride Flush 3 Ml Syringe) 3 ml IVFLUSH QSHIFT [facility] Last Admin: 01/16/25 07:28 Dose: 3 ml Documented By: CATY Labs 01/16/25 06:05 01/16/25 06:05 Labs: Laboratory Results - last 24 hr 01/16/25 06:05 MCV 92.4 MCH 28.4 MCHC 30.7 L RDW 14.6 Plt Count 455 H MPV 9.0 L Immature Gran % (Auto) 0.5 H Neut % (Auto) 72.4 Lymph % (Auto) 20.5 [place] % (Auto) 5.4 Eos % (Auto) 0.5 Baso % (Auto) 0.7 Lymph # (Auto) 1.2 [place] # (Auto) 0.3 Eos # (Auto) 0.0 Baso # (Auto) 0.0 Abs Immat Gran (auto) 0.03 Absolute Neuts (auto) 4.1 Absolute Nucleated RBC 0.000 Nucleated RBC % (auto) 0.0 Anion Gap 12 Estim Creat Clear Calc 105.5 Estimated GFR > 60 Fasting Glucose 88 Calcium 8.4 Total Bilirubin 0.1 AST 22 ALT 30 Alkaline Phosphatase 91 Total Protein 6.2 L Albumin 3.0 L Random Vancomycin 18.7 Microbiology Microbiology Results: Microbiology 01/15/25 06:23 Blood Culture - Preliminary Blood - Venous No growth after 24 hours. 01/15/25 06:29 Blood Culture - Preliminary Blood - Venous No growth after 24 hours. 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 TTE 01/12/25: 1. Tricuspid valve vegetation with trace to mild tricuspid regurgitation 2. Normal LV ejection fraction of 60 65% 3. Thickened mitral valve, can not rule out vegetation on the mitral leaflets 4. Normal RV systolic pressure 5. No gross pericardial effusion - follow susceptibilities from blood cultures 01/11; repeat BCx 01/13 positive; repeat 01/15; PICC line once BCx clear; needs at least 6 wk total IV vancomycin [cefazolin if MSSA] per ID consultation.PICC when cultures negative - pain control with morphine + oxycodone -discussed with Cardiology; repeat blood cultures drawn today. If negative would not do MARIAH and continue antibiotic treatment. If positive ...will schedule MARIAH -blood cultures thus far negative times 24 hours. Await final culture. We will place order for PICC line in a.m. if cultures remain negative 2.Polysubstance abuse - continue methadone Enoxaparin Full Code dispo - will need STR In my clinical judgment, the patient requires continued inpatient hospitalization for the following reasons: IV ABX Quality Stroke Does the patient have a stroke diagnosis?: No VTE Prior VTE?: No VTE Risk Level:: Medical - moderate - high VTE Device Contraindication: Treatment Not Indicated VTE Drug Contraindication: N/A - Med Ordered
[2025-01-16 15:37] VITALS: BP 91/50; PULSE 60; RESP 18; TEMP 36.6; O2SAT 99
[2025-01-16] MEDS: vancomycin HCL 1,000 MG in 0.9 % Sodium Chloride 250 ML 250 MG IV (15:48)
[2025-01-16 15:51] VITALS: BP 94/58; PULSE 66
--- NOTE | 2025-01-16 16:55 | PC.NURSE ---
Pt with narcotic seeking behavior. Throughout the day would be medicated with narcotics and then shortly after asking when she can get more. Educated that it is q4h prn. Pt states OK . Pt with extensive substance abuse history, denied use of illicit drugs however tox screen shows multiple positives.
[2025-01-16 19:36] VITALS: BP 103/54; PULSE 65; RESP 18; TEMP 36.6; O2SAT 99
[2025-01-17 03:13] VITALS: BP 96/56; PULSE 52; RESP 16; TEMP 36; O2SAT 100
[2025-01-17] MEDS: oxyCODONE HCl Immed Release 15 MG TABLET PO ×4 (04:06→16:36)
[2025-01-17 06:52] LABS: Creatinine Clr Calc Pharmacy 118.5; Estimated Glomerular Filt Rate > 60
[2025-01-17 06:53] LABS: Vancomycin Random 16.2 mcg/mL (15-20)
[2025-01-17 07:36] VITALS: BP 99/58; PULSE 55; RESP 16; TEMP 36.4; O2SAT 98
[2025-01-17] MEDS: 0.9 % Sodium Chloride Flush 3 ML SYRINGE IVFLUSH (08:07)
[2025-01-17] MEDS: vancomycin HCL 1,000 MG in 0.9 % Sodium Chloride 250 ML 270 MG IV ×2 (08:07→16:38)
[2025-01-17] MEDS: methADONE HCl 20 MG/2 ML ORAL.CONC 70 MG PO (08:08)
--- NOTE | 2025-01-17 10:32 | MHC.RECOVRN ---
Met with patient in follow up. Patient reporting she feels much better and pain is under control. No concerns regarding withdrawals or pain reported. Methadone continues to be at an effective dose per patient's report. Discussed with ALEX Carver.
--- NOTE | 2025-01-17 11:33 | PM.PNCARD ---
Subjective Subjective Date of Service: 01/17/25 Interval history: Seen examined at bedside. Blood cultures cleared. She has diskitis and pain in the neck. Physical Exam Vital Signs: Last Vital Signs Temp 97.6 F 01/17/25 07:36 Pulse 55 01/17/25 07:36 Resp 16 01/17/25 07:36 BP 99/58 L 01/17/25 07:36 Pulse Ox 98 01/17/25 07:36 O2 Del Method Room Air 01/17/25 07:36 O2 Flow Rate 94 01/12/25 19:10 BMI result Body Mass Index 18.8 GENERAL APPEARANCE: Complaining of neck pain. NECK: no carotid bruit, no jugular venous distention. HEART: no murmurs, regular rate and rhythm. LUNGS: clear to auscultation bilaterally. ABDOMEN: soft, nontender. EXTREMITIES: no edema. PERIPHERAL PULSES: equal. NEUROLOGIC: No gross deficits, AAO X 3 Objective Labs and Meds 01/16/25 06:05 01/17/25 06:08 Lab results: Laboratory Results - last 24 hr 01/17/25 01/17/25 06:08 06:09 Hold Purple Top SEE NOTE Creatinine 0.57 Estim Creat Clear Calc 118.5 Estimated GFR > 60 Random Vancomycin 16.2 Progress Note: A&P Assessment and plan (1) Endocarditis: Status: Acute Plan [age] year female with polysubstance abuse and tricuspid valve vegetation. She had thickening of the mitral valve and we were planning to do MARIAH on her. She also has diskitis and osteomyelitis as a source for bacteremia. Her bacteremia at this stage is cleared with antibiotics. She will go to a facility for 6 weeks of vancomycin. She has cervical spine osteomyelitis and I discussed with anesthesia about potential risk with hyperextension in case she needs intubation. There are concerns and we have decided not to pursue any MARIAH currently. Also her blood cultures have cleared and there is no mitral valve regurgitation or any obvious damage to the mitral valve. The patient is saying that she had mitral valve thickening told to her before before this hospitalization. Overall I think going forward antibiotics and close monitoring we will be the mainstay of treatment. Thank you for allowing me to participate in the care of your patient. Please feel free to contact me if you have any questions. Time Spent With Patient Time: Total time managing care of this patient today ____ minutes. Progress Note: Quality Stroke Does the patient have a stroke diagnosis?: No Procedures Date of Service Date of Service: 01/17/25
[2025-01-17] MEDS: Acetaminophen 325 MG TABLET 650 MG PO (12:38)
[2025-01-17] MEDS: hydrOXYzine HCL 10 MG TABLET PO (12:38)
--- NOTE | 2025-01-17 13:55 | MHC.CLN ---
F/U DIET=REGULAR. ENSURE TID PROVIDES 1050 KCALS, 60 G PROTEIN. PO INTAKE USUALLY 75-100%. FOLLOW FOR PO INTAKE.
--- NOTE | 2025-01-17 14:08 | MHC.CM.PN ---
Patient medically cleared, awaiting PICC placement for dc to [facility]. Received confirmation that guest dosing is approved to start tomorrow and SNF rec'd elder services approval. BLS transport scheduled for 6pm. RN and patient aware. Will need to reschedule if PICC not in place.
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
[2025-01-17 15:09] VITALS: RESP 18
--- NOTE | 2025-01-17 15:30 | PC.NURSE ---
Down for Picc line
[2025-01-17 16:44] VITALS: BP 108/55; PULSE 62; RESP 18; TEMP 37.1; O2SAT 98
[2025-01-17] MEDS: Cyclobenzaprine HCl 5 MG TABLET PO (16:56)
--- NOTE | 2025-01-17 16:57 | P.PICC_ITS ---
PICC Line Insertion NPICC Diagnosis: Spinal abscess Indication: shelter ABT Pertinent Labs: reviewed Technique: Following informed consent including risks, benefits and alternatives and using sterile technique including cap and mask, sterile gown, glove and drape, the left arm was prepped and draped in the usual sterile fashion of full barrier technique with G. Following completion of [place] Protocol the skin and soft tissues were anesthetized with 1% Lidocaine plain. Using ultrasound guidance, left brachial vein access was obtained. Over an 0.018 wire through peel-away sheath, a 4FR single lumen PASV PICC line was positioned. Catheter length is 39 cm internal length, 0cm external length, for a total trimmed length of 39cm. The procedure was performed in rm 272. Tip verification was performed by Nikos Victoria with Sherlock 3CG. Tip located in SVC. Ultrasound was used to document vein patency and for needle entry. A formal ultrasound picture and cardiac rhythm strip was recorded. Vascular Production Statistical Clerk has released the line for use and it is currently dressed with a StatLock, Tegaderm, and CHG disc. Verification has been performed for blood return and line patency. Arm Circumference: 24cm Equipment: The [employer] POWER PICC SOLO catheter with Sherlock 3CG Catheter Type: 4FR single lumen PASV catheter Lot #: [id number]
--- NOTE | 2025-01-17 18:02 | PC.NURSE ---
Pt discharged with RUE PICC line intact
--- NOTE | 2025-01-18 07:08 | P.CDIM_ITS ---
PROVIDER RESPONSE TEXT: To clarify, the appropriate diagnosis supported by the clinical indicators: Acute osteomyelitis C6-C7 QUERY TEXT: PHYSICIAN'S DOCUMENTATION REQUEST Date of Query: 01/17/2025 11:22 AM EDT Patient Name: Angie Silva Admit Date: 01/12/2025 Dear Michael Wang DO, A review of the medical record indicates additional documentation may be needed. Please review below and update the documentation accordingly. Clinical Indicators: CT cervical spine 01/11/25 - Findings are highly suspicious for acute discitis/osteomyelitis. Progress note 01/16/25 - Patient presenting with neck pain and found to have cervical diskitis/osteomy elitis with prevertebral/paravertebral/epidural phlegmon abscess. PICC line once BCx clear, needs at least six weeks total IV Vancomycin per ID consultation. Based on the above, please clarify in the Progress Notes further specificity regarding the acuity of the noted cervical Osteomyelitis. Acute osteomyelitis C6-C7 Subacute osteomyelitis Chronic osteomyelitis Chronic multifocal osteomyelitis Eric's abscess Other (explain) Clinically unable to determine (explain) Thank you, Bela Barrientos, CCS, CDIS Use of terms such as suspected, likely, concern for, or probable (associated with a specific diagnosi s that is being evaluated, monitored, or treated as if it exists) are acceptable and can be coded in the inpatient se tting, when documented at the time of discharge. Please use your independent medical judgment in providing your response. THIS QUERY IS PART OF THE PERMANENT MEDICAL RECORD
--- NOTE | 2025-01-18 07:08 | P.CDIM_ITS ---
PROVIDER RESPONSE TEXT: To clarify, the appropriate diagnosis supported by the clinical indicators: Underweight QUERY TEXT: PHYSICIAN'S DOCUMENTATION REQUEST Date of Query: 01/17/2025 07:47 AM EDT Patient Name: Angie Silva Admit Date: 01/12/2025 Dear Michael Wang DO, A review of the medical record indicates additional documentation may be needed. Please review below and update the documentation accordingly. Clinical Indicators: Height: 5ft 9in Weight: 57.8kg BMI: 18.8 Other Clinical Notes Supporting Significance of the BMI: Clinical nutrition notes: Patient is Underwe ight BMI 18.8 Ensure TID provides 1050 KCALS. Follow for PO Intake. If possible, please provide an associated diagnosis related to the abnormal BMI, such as: Underweight Weight loss Cachexia Anorexia Malnutrition mild, moderate, severe Other (explain) Clinically unable to determine (explain) Thank you, Bela Barrientos, CCS, CDIS Use of terms such as suspected, likely, concern for, or probable (associated with a specific diagnosi s that is being evaluated, monitored, or treated as if it exists) are acceptable and can be coded in the inpatient se tting, when documented at the time of discharge. Please use your independent medical judgment in providing your response. THIS QUERY IS PART OF THE PERMANENT MEDICAL RECORD
--- NOTE | 2025-01-22 05:22 | PC.NURSE ---
late entry: Patient was given oxycodone on 01/14 at 0220 and preferred and requested that medication over others available although her pain was a 10/10 and Oxycodone pain level parameters were for less.
== END 2025-01-17 18:01 | disposition skilled nursing facility (03) | DRG 193 ==
LOC: HO.ED 23:08 → HO.EDOVER 23:20 → HO.S3 01-12 00:07
PROVIDERS: Emergency Medicine; Family Medicine; Internal Medicine; Physician Assistant; Admitting Provider Student in an Organized Health Care Education/Training Program; Emergency Provider Emergency Medicine; Visit Provider Hospitalist
DX: I33.0 Acute and subacute infective endocarditis (principal); R78.81 Bacteremia; M46.32 Infection of intervertebral disc (pyogenic), cervical region; M46.22 Osteomyelitis of vertebra, cervical region; F11.20 Opioid dependence, uncomplicated; B95.62 Methicillin resistant Staphylococcus aureus infection as the cause of diseases classified elsewhere; R63.6 Underweight; F19.10 Other psychoactive substance abuse, uncomplicated; T40.3X6A Underdosing of methadone, initial encounter; Z59.82 Transportation insecurity; Z68.1 Body mass index [BMI] 19.9 or less, adult; Z79.899 Other long term (current) drug therapy
CPT/HCPCS: 36415; 36573; 70450; 71046; 72100; 72125; 72156; 80048; 80053; 80202; 80307; 82565; 83605; 84702; 85025; 85027; 85652; 86140; 86704; 86706; 86803; 87040; 87077; 87147; 87186; 87205; 87340; 87389; 93306; 99285; A9585; C1888; J1650; J1885; J2270; J2543; J3370; J3371; P9047; S9485

== ENCOUNTER → 2025-01-11 12:50 | Outpatient (BNV) | payer MEDICAID, SELFPAY | PROVIDERS: Emergency Provider Emergency Medicine; Visit Provider Radiology Diagnostic Radiology | DX: M47.812 Spondylosis without myelopathy or radiculopathy, cervical region (principal); M79.89 Other specified soft tissue disorders; M54.2 Cervicalgia; S09.90XA Unspecified injury of head, initial encounter; M54.50 Low back pain, unspecified; R05.9 Cough, unspecified | CPT/HCPCS: 70450; 71046; 72100; 72125; 72156 ==

== ENCOUNTER 2025-01-11 23:00 | Outpatient (BNV) | payer MEDICAID, SELFPAY | END 2025-01-12 11:25 | PROVIDERS: Admitting Provider Student in an Organized Health Care Education/Training Program; Emergency Provider Emergency Medicine; Visit Provider Internal Medicine Cardiovascular Disease | DX: I33.9 Acute and subacute endocarditis, unspecified (principal); I36.8 Other nonrheumatic tricuspid valve disorders; I36.1 Nonrheumatic tricuspid (valve) insufficiency | CPT/HCPCS: 93306 ==

== ENCOUNTER → 2025-01-11 23:00 | Outpatient (BNV) | payer MEDICAID, SELFPAY | PROVIDERS: Admitting Provider Student in an Organized Health Care Education/Training Program; Emergency Provider Emergency Medicine; Visit Provider Internal Medicine | DX: F19.90 Other psychoactive substance use, unspecified, uncomplicated (principal); M46.20 Osteomyelitis of vertebra, site unspecified; M46.42 Discitis, unspecified, cervical region; R78.81 Bacteremia | CPT/HCPCS: 99222 ==

== ENCOUNTER → 2025-01-11 23:00 | Outpatient (BNV) | payer OTHER, SELFPAY | PROVIDERS: Admitting Provider Student in an Organized Health Care Education/Training Program; Emergency Provider Emergency Medicine; Visit Provider Nurse Practitioner Psychiatric/Mental Health | DX: F11.90 Opioid use, unspecified, uncomplicated (principal) | CPT/HCPCS: 99232 ==

== ENCOUNTER → 2025-01-11 23:00 | Outpatient (BNV) | payer MEDICAID, SELFPAY | PROVIDERS: Admitting Provider Student in an Organized Health Care Education/Training Program; Emergency Provider Emergency Medicine; Visit Provider Internal Medicine Cardiovascular Disease | DX: I38 Endocarditis, valve unspecified (principal) | CPT/HCPCS: 99222 ==

== ENCOUNTER → 2025-01-11 23:00 | Outpatient (BNV) | payer MEDICAID, SELFPAY | PROVIDERS: Admitting Provider Student in an Organized Health Care Education/Training Program; Emergency Provider Emergency Medicine; Visit Provider Student in an Organized Health Care Education/Training Program | DX: M46.42 Discitis, unspecified, cervical region (principal); M46.20 Osteomyelitis of vertebra, site unspecified; F19.90 Other psychoactive substance use, unspecified, uncomplicated | CPT/HCPCS: 99222; 99232; 99239 ==

== ENCOUNTER 2025-06-12 10:21 | Outpatient (REF) | payer OTHER, SELFPAY ==
[2025-06-12 13:18] LABS: Appearance Urine Clear; Glucose Urine UA Negative (Negative); PH 7.0 (5.0-9.0); Specific Gravity - Urine 1.010 (1.005-1.025); UMIC TRIGGER UACC YES
[2025-06-12 13:25] LABS: MANUAL DIFF FLAG NO
[2025-06-12 13:35] LABS: Hematocrit 38.5 % (37.0-47.0); Hemoglobin 12.8 g/dl (12.0-16.0); Imm Gran Abs Auto 0.02 X10*3/uL (0.00-0.03); Imm Gran Pct Auto 0.4 % (0.0-0.4); Lymphocytes Absolute Auto 1.0 X10*3/uL (1.2-4.9); Mean Corpuscular HGB Conc 33.2 g/dl (31.0-35.0); Mean Corpuscular Hemoglobin 29.0 pg (27.0-33.0); Mean Corpuscular Volume 87.3 fL (80.0-98.0); NRBC Abs Auto 0.000 X10*3/uL (0.0-0.012); NRBC Pct Auto 0.0 /100WBC (0.0-0.2); Platelet Count 258 X10*3/uL (160-400); Red Blood Count 4.41 X10*6/uL (4.20-5.50); White Blood Count 5.2 X10*3/uL (4.8-10.8)
[2025-06-12 14:40] LABS: CT PCR Urine NOT DETECTED (Not Detect.); NG PCR Urine NOT DETECTED (Not Detect.)
[2025-06-12 18:48] LABS: Alanine Aminotransferase 39 U/L (0-31); Albumin Level 4.2 g/dL (3.5-5.0); Alkaline Phosphatase 84 U/L (39-117); Anion Gap 11 (12-20); Aspartate Amino Transferase 33 U/L (5-31); Blood Urea Nitrogen 11 mg/dL (9-16); Calcium 9.4 mg/dL (8.4-10.2); Carbon Dioxide 29 mmol/L (22-29); Chloride 108 mmol/L (96-108); Cholesterol 233 mg/dL (<200); Estimated Glomerular Filt Rate > 60; HDL Cholesterol 41 mg/dL (>40); Magnesium 1.9 mg/dL (1.6-2.6); Potassium 4.5 mmol/L (3.3-5.1); Sodium 143 mmol/L (135-145); Total Protein 6.9 g/dL (6.5-8.0); Triglycerides 224 mg/dL (<150)
[2025-06-12 19:02] LABS: Folate 8.0 ng/mL (> or = 4.0); Vitamin B12 265 pg/mL (200-900)
[2025-06-13 03:13] LABS: Syphilis Screen Nonreactive (Nonreactive)
[2025-06-13 03:26] LABS: HBS Num1 58.36 mIU/mL (0-7.99); HBsAGNum1 0.24 S/CO (0.00-0.99); HIV Num 1 0.06 S/CO (0.00-0.99); Hepatitis B Surface Antigen Negative (Negative); ~HepC Num1 0.10 S/CO (0.00-0.79); ~Hepatitis B Surface Antibody REACTIVE (Nonreactive); ~Hepatitis C Antibody Nonreactive (Nonreactive)
[2025-06-16 15:08] LABS: VITAMIN D (1,25 OH) D3 28 pg/mL; Vit D (1,25-Dihydroxy) Total 28 pg/mL (18-72); Vitamin D (1,25 OH) D2 <8 pg/mL
[2025-06-16 23:13] LABS: Chlamydia Trachomatis IgA <1:16 titer (<1:16)
== END 2025-06-12 10:22 | disposition home or self-care (01) ==
LOC: HO.HKASLDS 10:21
PROVIDERS: PCP Student in an Organized Health Care Education/Training Program; Visit Provider Student in an Organized Health Care Education/Training Program
DX: Z13.9 Encounter for screening, unspecified (principal); Z12.4 Encounter for screening for malignant neoplasm of cervix; F41.9 Anxiety disorder, unspecified; G47.00 Insomnia, unspecified; H66.90 Otitis media, unspecified, unspecified ear; N80.9 Endometriosis, unspecified; M46.20 Osteomyelitis of vertebra, site unspecified; F19.90 Other psychoactive substance use, unspecified, uncomplicated; N95.1 Menopausal and female climacteric states; Z86.79 Personal history of other diseases of the circulatory system; Z87.898 Personal history of other specified conditions; Z79.899 Other long term (current) drug therapy
CPT/HCPCS: 80053; 80061; 81001; 82607; 82652; 82746; 83036; 83735; 84443; 85025; 86631; 86632; 86706; 86780; 86803; 87340; 87389; 87491; 87591

== ENCOUNTER 2025-06-12 10:21 | Outpatient (AMB) | payer OTHER, SELFPAY ==
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
[2025-06-12 10:27] VITALS: BP 118/80; PULSE 87; TEMP 36.7; O2SAT 99; BMI 23.2
== END 2025-06-12 11:11 | disposition home or self-care (01) ==
LOC: HO.HMCFMS 10:23
PROVIDERS: PCP Student in an Organized Health Care Education/Training Program; Visit Provider Student in an Organized Health Care Education/Training Program
DX: Z12.4 Encounter for screening for malignant neoplasm of cervix (principal); F41.9 Anxiety disorder, unspecified; Z86.79 Personal history of other diseases of the circulatory system; Z87.898 Personal history of other specified conditions; G47.00 Insomnia, unspecified; H66.90 Otitis media, unspecified, unspecified ear; N80.9 Endometriosis, unspecified; M46.20 Osteomyelitis of vertebra, site unspecified; F19.90 Other psychoactive substance use, unspecified, uncomplicated; N95.1 Menopausal and female climacteric states

== ENCOUNTER 2025-06-18 10:23 | Outpatient (AMB) | payer OTHER, SELFPAY ==
--- NOTE | 2025-06-18 10:20 | A.OFFVIS_ITS ---
Vital Signs 06/18/25 10:28 Height 5 ft 9 in Weight 168 lb BMI 24.8 Pulse 85 Pulse Source Pulse Oximeter Temp 98.5 F Temp Source Oral Pulse Oximetry (%) 98 Oxygen Delivery Method Room Air Intake Visit Reasons: reff/ Osteomyelitis Allergies doxycycline Allergy (Intermediate, Verified 06/18/25 10:29) Rash amoxicillin Allergy (Verified 06/18/25 10:29) Vomiting shellfish derived (shellfish) Allergy (Verified 06/18/25 10:29) Anaphylaxis HPI Comments Details: History of Present Illness The patient is a 39-year-old female presenting with neck pain for evaluation of potential recurrent neck infection. During the spring, she was diagnosed with C6-C7 discitis osteomyelitis and completed an intravenous antibiotic course. Since then, there have been no reports of fever, chills, or other indications of recurrent infection. The patient expresses concern regarding the status of the previous condition and whether it persists or could relapse. Recent history includes stability in vital signs and completion of prescribed treatment. The absence of acute symptoms currently suggests no active recurrence of infection. Review of Systems - General: Denies fever, chills - Musculoskeletal: Reports neck pain - Neurological: Denies objective limitations - Infectious Disease: Denies recurrent infections Physical Exam - Vitals- Stable - Head, Eyes, Ears, Nose, Throat (HEENT)- Pupils equal, round, and reactive to light; extraocular movements intact; oropharynx clear - Respiratory- Lungs clear to auscultation bilaterally - Cardiovascular- Heart with regular rate and rhythm - Abdomen- Soft, non-tender - Neurological- Non-focal exam; able to move neck freely; nontender neck on motion, no edema - Skin- Clear Results Plan Patient was informed and verbally consented to the use of an ambient scribe for clinic note documentation during this visit. 1. Cervical Osteomyelitis The patient completed a course of IV antibiotics for C6-C7 discitis osteomyelitis. No further diagnostic testing is suggested at this time due to the potential for MRI to show degradation in already fragile bone tissue. Monitoring for any signs of recurrence is planned. Discussion Notes I discussed with the patient the resolution of symptoms related to her previous cervical osteomyelitis and the unlikely nature of a recurrence given the lack of systemic symptoms such as fever or chills. The completion of her antibiotic therapy suggests effective treatment. I advised against further imaging at this time due to the potential for misleading results from MRI scanning on previously affected bone structures. We will continue to monitor for any signs of recurring infection, and I stressed the importance of alerting me should new symptoms arise. Follow-up visits will be used to evaluate any changes in her condition. Medical Decision Making In considering the patient's history of cervical osteomyelitis, it appears that she has achieved resolution following a complete course of intravenous antibiotics. Given her stable condition and absence of systemic symptoms, I deem it unnecessary to conduct further imaging studies that may not accurately reflect the current state of infection but instead show residual bone fragility. My decision not to pursue additional diagnostics is based on the lack of symptoms suggesting active osteomyelitis, and it is consistent with the treatment goals of preventing unnecessary intervention while maintaining vigilance for any signs of recurrence. Patient Instructions - Alert me if you experience fever, chills, or increased neck pain. - Monitor for any new symptoms, such as neck stiffness or restricted movement. - Attend follow-up appointments to discuss any changes in condition. FOR[facility]LY [facility] Medical History (Updated 06/12/25 @ 11:04 by Eyal Ramos MD) History of endocarditis Screening for malignant neoplasm of cervix History of bacteremia Anxiety Insomnia Endocarditis Opioid use disorder Spinal abscess Discitis Bacteremia Polysubstance use disorder Family History (Updated 06/12/25 @ 10:35 by Lennie Fenton CMA) Mother Brain cancer Father Brain cancer Social History Household Members: Children Housing: House Do you presently have visiting nurse or other home services: No Comment: patient steady on feet, rings appropriately Patient Tobacco Use Status: Former Tobacco user e-Cigarette/Vaping Use: Currently Using Substance Use Type: Crack/Cocaine service: No Current occupational status: unemployed Cognitive needs: No Hearing needs: No Vision needs: Yes (rx glasses) Physical Exam Vital Signs: Last Vital Signs Temp 98.5 F 06/18/25 10:28 Pulse 85 06/18/25 10:28 Pulse Ox 98 06/18/25 10:28 Oxygen Delivery Method Room Air 06/18/25 10:28 BMI result Body Mass Index 24.8 Assessment & Plan Assessment & Plan (1) History of bacteremia: Code(s): Z87.898 - Personal history of other specified conditions Category: Medical Plan: na Plan na Coding Level of Care Code Est Pt Level 3 (41248) Diagnoses History of bacteremia Z87.898
[2025-06-18 10:28] VITALS: PULSE 85; TEMP 36.9; O2SAT 98; BMI 24.8
== END 2025-06-18 11:19 | disposition home or self-care (01) ==
LOC: HO.HID 10:23
PROVIDERS: PCP Student in an Organized Health Care Education/Training Program; Visit Provider Internal Medicine
DX: Z87.898 Personal history of other specified conditions (principal)
CPT/HCPCS: 99213

== ENCOUNTER → 2025-06-18 10:23 | Outpatient (BNVA) | payer OTHER, SELFPAY | PROVIDERS: PCP Student in an Organized Health Care Education/Training Program; Visit Provider Internal Medicine | DX: M46.22 Osteomyelitis of vertebra, cervical region (principal); Z87.898 Personal history of other specified conditions | CPT/HCPCS: 99212 ==

== ENCOUNTER 2025-06-26 12:35 | Outpatient (AMB) | payer OTHER, SELFPAY ==
--- NOTE | 2025-06-26 12:52 | MHC.PC.OV ---
Vital Signs 06/26/25 12:57 Height 5 ft 9 in Weight 166 lb 2 oz BMI 24.5 BP 122/69 Blood Pressure Location Lt brachial Position Sitting Respiration 18 Pulse 75 Pulse Source Monitor Temp 98.2 F Temp Source Oral Pulse Oximetry (%) 98 Oxygen Delivery Method Room Air Intake Visit Reasons: 2 week follow up Intake Note: 2 week follow up Clinical Data Research Required: No Accompanied by: Self / Same As Patient Allergies doxycycline Allergy (Intermediate, Verified 06/26/25 12:55) Rash amoxicillin Allergy (Verified 06/26/25 12:55) Vomiting shellfish derived (shellfish) Allergy (Verified 06/26/25 12:55) Anaphylaxis Medication List - Last Reconciled 06/26/25 by Eyal Ramos MD cyanocobalamin (vitamin B-12) 1,000 mcg PO DAILY hydroxyzine HCl 50 mg PO BEDTIME methadone (Methadone Intensol) 70 mg PO DAILY Tobacco use date assessed: 06/26/25 Dental Screening Dental Screen Date: 06/26/25 Did you have a dental visit in the last 12 months?: No Did you have a dental problem in the last 6 months where you did not have access to dental care?: Yes Was dental information given to patient?: No HPI HPI Comments History of Present Illness Details History of Present Illness The patient is a 39-year-old female presenting for a follow-up visit to review laboratory results. Hyperlipidemia: The patient has no prior history of high cholesterol. She attributes her current sedentary lifestyle to stress. She notes that healthy food is expensive and that she lives with her stepfather who often cooks high-fat meals like pork and fried chicken. Her diet includes a lot of peanut butter, but not a lot of cheese or eggs. Elevated liver enzymes: The patient was noted to have elevated liver enzymes during her recent hospitalization. Anxiety: The patient reports feeling super anxious at times during the day. She was prescribed hydroxyzine to be taken at night, but she reports it did not affect her much or make her tired. A referral to behavioral health was made two weeks ago, but she has not heard from them yet. Cervical disc disorder: The patient reports ongoing pain and mentions having a compromised cervical disc or vertebrae. An MRI of the cervical spine has been ordered, but she has not yet been called to schedule it. History of bacteremia: The patient was recently hospitalized at [facility] where a blood culture was positive for an infection. She recently saw an infectious disease specialist who informed her that the infection is gone and that antibiotics are not indicated. Medications: - Methadone 70 mg daily - Hydroxyzine for anxiety/sleep - Multivitamin Social History: - Occupation: The patient is a physical therapist. - Exercise: She reports being very sedentary recently due to stress. - Nutrition: The patient states that healthy food is expensive. - Living Situation: She lives with her stepfather, who cooks foods such as pork and fried chicken. - History: She is a of the [employer]. Diagnostic Results: - CBC: White blood cells, red blood cells, hemoglobin, hematocrit, and platelets are normal. - CMP: Sodium, potassium, renal function, calcium, and magnesium are normal. - A1c: Normal. - Liver enzymes: Slightly elevated. - Lipid Panel: Triglycerides 224 mg/dL (normal <150), LDL 148 mg/dL (normal <100), and total cholesterol 233 mg/dL (normal <200). - Vitamin B12: 265 pg/mL (low normal, cutoff 200). - Vitamin D, folate, and thyroid function tests are good. - Urinalysis: Normal. - Hepatitis C, Hepatitis B, and HIV screenings are negative. Past Medical History - Recent hospitalization with bacteremia, now resolved. - Cervical disc disorder. - Anxiety. Health Maintenance - Patient has a pending consultation with a nurse navigator. - Patient has a pending [facility] appointment in September. - Patient has a pending Cardiology appointment in October. - An MRI of the cervical spine is pending. - A referral for a home sleep study is pending. - A referral to behavioral health was placed two weeks prior. - Screening labs for Hepatitis B, Hepatitis C, and HIV were negative. [facility] Medical History (Updated 06/26/25 @ 12:59 by Eyal Ramos MD) Elevated liver enzymes Hyperlipidemia History of endocarditis Screening for malignant neoplasm of cervix History of bacteremia Anxiety Insomnia Endocarditis Opioid use disorder Spinal abscess Discitis Bacteremia Polysubstance use disorder Family History Mother Brain cancer Father Brain cancer Social History (Updated 06/26/25 @ 12:56 by Flynn Traylor MA) Household Members: Children Housing: House Do you presently have visiting nurse or other home services: No Alcohol intake: never Comment: patient steady on feet, rings appropriately Patient Tobacco Use Status: Former Tobacco user e-Cigarette/Vaping Use: Currently Using Substance Use Type: Crack/Cocaine service: No Current occupational status: unemployed Cognitive needs: No Hearing needs: No Vision needs: Yes (rx glasses) Questionnaire Thrive Questionnaire Date Thrive assessed: 06/01/25 I am a: Patient What is your living situation today?: I have a place to live, but I am worried about losing it in the future Within the past 12 months, did the food you bought not last and you didn't have the money to get more?: Often true Within the past 12 months, did you worry whether your food would run out before you got money to buy more?: Often true Do you have trouble paying for medicines?: I choose not to answer this question Do you have trouble getting transportation to medical appointments?: No Do you have trouble paying your heating and electricity bill?: Yes Do you have trouble taking care of your child, family member or friend?: No Do you have trouble with day-to-day activities such as bathing, preparing meals, shopping, managing finances, etc.?: No Are you currently unemployed and looking for a job?: No Are you interested in more education?: No THRIVE Score: 4 ILIA-7 AMB Questionnaire ILIA-7 Date ILIA - 7 assessed: 06/12/25 Source: Developed by Drs. Teodoro Britt, Chanel Senior, Dakotah Jensen and colleagues, with an educational lucy from [employer]. Review of Systems Narrative Review of Systems - Musculoskeletal: Reports persistent pain, implying neck. - Psychiatric: Reports feeling super anxious. 10-point ROS reviewed and negative except as noted in HPI Physical exam (Primary Care) Tobacco/Smoking Status: Tobacco use Status Tobacco use date assessed 06/12/25 06/26/25 12:54 Patient Tobacco Use Status Former Tobacco user 06/26/25 12:56 e-Cigarette/Vaping Use Currently Using 06/26/25 12:56 Thrive Assessment: Date of Thrive Assessment Date Thrive assessed 06/01/25 06/26/25 12:54 Narrative Physical Exam General: Well-appearing, in no acute distress. Vital signs: Within normal limits. HEENT: Normocephalic, atraumatic. PERRLA, EOMI. Conjunctiva clear, sclera anicteric. Oropharynx clear, mucous membranes moist. TMs intact bilaterally. Neck: Supple, no lymphadenopathy, no thyromegaly, no JVD or carotid bruits. Cardiovascular: RRR, normal S1/S2, no murmurs, rubs, or gallops. Peripheral pulses 2+ and symmetric. No edema. Respiratory: Lungs clear to auscultation bilaterally, no wheezes, rales, or rhonchi. Normal effort. Abdomen: Soft, non-tender, non-distended. Normoactive bowel sounds. No hepatosplenomegaly, no masses. MSK: Full range of motion, no joint swelling or deformity. Normal gait. Skin: Warm, dry, intact. No rashes, lesions, or pallor. Neuro: Alert and oriented x3. Cranial nerves II-XII intact. Strength 5/5 throughout. Sensation intact. Reflexes 2+ symmetric. Normal coordination and gait. Psych: Appropriate mood and affect. Normal judgment and insight. Coding Level of Care Code Est Pt Level 4 (04051) Diagnoses Hyperlipidemia E78.5 Elevated liver enzymes R74.8 Anxiety F41.9 Low vitamin B12 level E53.8 Assessment & Plan Assessment & Plan (1) Hyperlipidemia: Code(s): E78.5 - Hyperlipidemia, unspecified Category: Medical (2) Elevated liver enzymes: Code(s): R74.8 - Abnormal levels of other serum enzymes Category: Medical (3) Anxiety: Code(s): F41.9 - Anxiety disorder, unspecified Category: Medical (4) Low vitamin B12 level: Code(s): E53.8 - Deficiency of other specified B group vitamins Plan Consent Patient was informed and verbally consented to the use of an ambient scribe for clinic note documentation during this visit. Plan 1. Hyperlipidemia - A referral will be sent to a registered dietitian for counseling on dietary modifications to lower cholesterol levels. - An ultrasound of the liver will be ordered to evaluate for fatty liver. 2. Vitamin B12 Deficiency - A prescription for Vitamin B12 will be sent for the patient to take daily. 3. Anxiety - A prescription for hydroxyzine will be sent to the pharmacy. - Discussed taking hydroxyzine twice a day. - Patient advised to call and follow up on the behavioral health referral. 4. Coordination Of Care And Follow-Up - The patient should follow up on her pending appointments, including the MRI of her cervical spine, and appointments with [facility] and Cardiology. - The patient will follow up in the office in one month. Discussion Notes I reviewed the patient's recent lab results with her. I informed her that her blood counts, kidney function, and A1c were normal, and her infectious screens for HIV, Hepatitis B, and C were negative. We discussed the findings of elevated cholesterol, triglycerides, and slightly elevated liver enzymes. I also noted her borderline low vitamin B12 level. I have recommended daily vitamin B12 supplementation and have placed a referral to a registered dietitian for dietary counseling to address the hyperlipidemia. To further investigate the elevated liver enzymes, I am ordering an ultrasound of the liver to rule out fatty liver disease. Regarding her anxiety, I have refilled her hydroxyzine and advised she can take it twice daily. We discussed the importance of following up on the behavioral health referral made two weeks ago, and I have instructed her to call them directly. The patient was advised to continue to follow up on her pending appointments and studies, including the cervical spine MRI, and consultations with OBGYN and Cardiology. We agreed she will return for a follow-up visit in one month. Patient Instructions - Your blood work was mostly good. - Your cholesterol and triglycerides are high, and your liver numbers are a little elevated. - Take a vitamin B12 supplement every day. - We are referring you to a dietitian to help you with your diet to lower your cholesterol. - We will order an ultrasound of your liver to make sure it is healthy. - I have sent a refill for your hydroxyzine anxiety medication. - Please call the behavioral health department to follow up on your appointment, as the referral was sent two weeks ago. - Remember to follow up on your other pending appointments: MRI of your neck, OBGYN, and heart doctor (cardiology). - Please schedule an appointment to see me again in one month. Medical Decision Making The patient is a 39-year-old female presenting for review of lab results. Her labs are significant for new hyperlipidemia (total cholesterol 233, LDL 148, triglycerides 224) and mildly elevated liver enzymes, which were also noted on recent hospital admission. This is likely secondary to dietary factors and a recent sedentary lifestyle due to stress. The initial plan for hyperlipidemia involves conservative management with a referral to a registered dietitian, alongside a liver ultrasound to rule out non-alcoholic fatty liver disease as a cause for her elevated enzymes. Labs also revealed a borderline low vitamin B12 level, for which daily supplementation is recommended. For her anxiety, hydroxyzine has been refilled with instructions for twice-daily dosing. Given her report of minimal effect and the need for a more formal psychiatric assessment, I am deferring any changes to her anxiolytic regimen until she is seen by behavioral health. I have instructed the patient to be proactive in contacting them to schedule an appointment, as the referral has been pending for two weeks. Outstanding referrals and studies including a cervical spine MRI, home sleep study, and consultations with cardiology and OBGYN were reviewed, and the patient was encouraged to follow up. A follow-up is scheduled in one month to review the results of the liver ultrasound and assess progress. Total time spent caring for the patient today was 30 minutes. This includes time spent before the visit reviewing the chart, time spent documenting, and time spent reviewing laboratory results, diagnostic imaging, medications, performing a medically necessary evaluation, counseling on diagnoses, care coordination Orders: Orders US abdomen limited Today R74.8 - Abnormal levels of other serum enzymes Referrals Nurse Navigator Referral E78.5 - Hyperlipidemia, unspecified, R74.8 - Abnormal levels of other serum enzymes Medications: New cyanocobalamin (vitamin B-12) 1,000 mcg PO DAILY 90 tabs 0RF Refilled hydroxyzine HCl 50 mg PO BEDTIME 30 tabs 0RF
[2025-06-26 12:57] VITALS: BP 122/69; PULSE 75; RESP 18; TEMP 36.8; O2SAT 98; BMI 24.5
== END 2025-06-26 13:13 | disposition home or self-care (01) ==
LOC: HO.HMCFMS 12:36
PROVIDERS: PCP Student in an Organized Health Care Education/Training Program; Visit Provider Student in an Organized Health Care Education/Training Program
DX: E78.5 Hyperlipidemia, unspecified (principal); R74.8 Abnormal levels of other serum enzymes; F41.9 Anxiety disorder, unspecified; E53.8 Deficiency of other specified B group vitamins

== ENCOUNTER → 2025-06-26 12:35 | Outpatient (BNVA) | payer OTHER, SELFPAY | PROVIDERS: Visit Provider Student in an Organized Health Care Education/Training Program | DX: R74.8 Abnormal levels of other serum enzymes (principal); E78.5 Hyperlipidemia, unspecified; F41.9 Anxiety disorder, unspecified; E53.8 Deficiency of other specified B group vitamins | CPT/HCPCS: 99212 ==

== ENCOUNTER 2025-07-20 12:45 | Outpatient (REF) | payer OTHER, SELFPAY ==
--- NOTE | ~2025-07-20 | MR_ITS ---
EXAMINATION: MR CERVICAL SPINE WITHOUT CONTRAST CLINICAL INFORMATION: History of discitis/osteomyelitis C6-C7, 11/11/2024, follow-up examination. 39-year-old female. Patient says still with some neck pain, and mild bilateral hand weakness. Of note, patient refused IV contrast for the exam. COMPARISON: MRI and CT of the cervical spine 11/11/2024. TECHNIQUE: Multiplanar multisequence MR imaging of the cervical spine was done without IV gadolinium. Examination was performed on a 1.5 Farhana Siemens unit, using standard sequences. FINDINGS: CORONAL ALIGNMENT: -Normal. SAGITTAL ALIGNMENT: -There is a slight kyphotic deformity of the cervical spine centered at C6. -There is no subluxation. CRANIOCERVICAL JUNCTION/C1-2 ARTICULATIONS: -Intact and aligned. VERTEBRAL BODIES/BONE MARROW: -There is residual edema/high T2 signal within C6 and C7. There is approximately 70% volume loss of the C6 vertebral body. There is approximately 50% volume loss of the C7 vertebral body. -There is mild edema within the left pedicles of C6 and C7, -There is edema within the left C3-C4 facet joints (series 7, image 3; series 5, image 3). This was also present on the prior exam. -No additional bone marrow signal abnormalities or additional compression deformities. DISCS: -The C6-7 disc demonstrates severe loss of height and increased signal, consistent with sequela of prior infection. -The C5-6 and C7-T1 discs demonstrate mild loss of disc signal without significant loss of disc height. -The remainder of the intervertebral discs are normal. CERVICAL CORD: -Normal in caliber and signal throughout. There is no cord impingement, expansion, or thinning. -There is 4 mm maximal thickness curvilinear low T2 signal to the posterior left of the cervical cord spanning the superior endplate of C6 to the inferior endplate of C7, which then persists dorsally to the inferior endplate of T1. This curvilinear abnormality has low signal on the STIR sequence, T2 sequence, and high signal on the axial gradient sequence. This has no signal on T1-weighted imaging. Unfortunately, the patient refused contrast, which limits evaluation of this abnormality. (Series 8, images 18-30; series 6, image 8; series 7, image 8). There does appear to be minimal mass effect upon the left dorsal cord as seen on series 9, image 16. The main differential of this abnormality includes epidural abscess, or hematoma. An unusual CSF pulsation artifact is also a possibility although this would not have associated mild mass effect upon the dorsal cord. PARAVERTEBRAL SOFT TISSUES: -The previously seen abundant prevertebral and paravertebral edema and fluid has resolved. There is no persistent abscess or edema present. -There is some mild high signal in the dorsal interspinous region at C6-C7 (series 7, image 8). This appears to represent mild edema and does not appear to represent a formed fluid collection. No additional abnormal paraspinous signal. VISUALIZED INTRACRANIAL STRUCTURES: -Imaged contents of the posterior fossa appear normal. AXIAL DISC SPACE IMAGING: C2-C3: No central canal or neural foraminal narrowing. C3-C4: Mild uncinate spurring bilaterally resulting in mild bilateral neural foraminal narrowing. No central canal narrowing. C4-C5: No central canal narrowing. Mild left neural foraminal narrowing secondary to left facet hypertrophy. C5-C6: Mild kyphotic deformity. Shallow diffuse disc bulge at this level. Left dorsal low T2 signal posterior to the cord as detailed above, uncertain etiology. Bilateral uncinate spurring and mild bilateral facet spurring contributes to moderate left and mild right neural foraminal narrowing. C6-C7: Left Dorsal low T2 signal posterior to the cord as detailed above, uncertain etiology. Otherwise, no significant central canal or neural foraminal narrowing. C7-T1: Midline dorsal T2 signal abnormality as described above. No central canal or neural foraminal narrowing. MR/MR cervical spine wo con IMPRESSION: 1. There is a focal kyphotic deformity at C6-7 which has developed since the prior examination, mainly secondary to approximately 70% loss of height of the C6 vertebral body, and 50% loss of height of the C7 vertebral body. There is improved but mild persistent edema within these vertebral bodies. 2. The previously seen prevertebral and paravertebral extensive edema and small amount of fluid has resolved on the current study. There is a small amount of dorsal interspinous edema at C6-C7. 3. There is mild persistent edema within the left C3-4 facets. 4. There is a new curvilinear 4 mm maximal thickness T2 hypointense, gradient hyperintense focus of signal abnormality dorsal to the cord spanning C5-T1 as described above. There is no associated T1 signal abnormality. Unfortunately the patient refused contrast, significantly limiting evaluation of this finding. Differential includes a dorsal epidural abscess, dorsal epidural hematoma, or a prominent unusual CSF pulsation artifact. Given the fact there is a mild dorsal indentation upon the cord resulting from this abnormality, CSF pulsation artifact would seem unlikely. Several radiologists consulted on this examination, with similar consensus. This patient should return for postcontrast imaging given this finding. Electronically signed by: Jose Watkins MD 07/20/2025 02:27 PM ERIKA
== END 2025-07-20 12:46 | disposition home or self-care (01) ==
LOC: HO.MRI 12:45
PROVIDERS: PCP Student in an Organized Health Care Education/Training Program; Visit Provider Student in an Organized Health Care Education/Training Program
DX: M46.22 Osteomyelitis of vertebra, cervical region (principal); M46.42 Discitis, unspecified, cervical region; R53.1 Weakness
CPT/HCPCS: 72141

== ENCOUNTER → 2025-07-20 12:53 | Outpatient (BNV) | payer OTHER, SELFPAY | PROVIDERS: PCP Student in an Organized Health Care Education/Training Program; Visit Provider Radiology Diagnostic Radiology | DX: M46.42 Discitis, unspecified, cervical region (principal); M40.202 Unspecified kyphosis, cervical region; R60.0 Localized edema | CPT/HCPCS: 72141 ==

== ENCOUNTER 2025-08-09 12:53 | Outpatient (AMB) | payer OTHER, SELFPAY ==
[2025-08-09 12:55] VITALS: BP 118/73; PULSE 79; RESP 16; TEMP 36.6; O2SAT 95; BMI 26.2
--- NOTE | 2025-08-09 12:55 | A.OFFPC_ITS ---
Vital Signs 08/09/25 12:55 Height 5 ft 9 in Weight 177 lb 6 oz BMI 26.2 BP 118/73 Blood Pressure Location Rt brachial Position Sitting Respiration 16 Pulse 79 Pulse Source Pulse Oximeter Temp 98 F Temp Source Oral Pulse Oximetry (%) 95 Oxygen Delivery Method Room Air Intake Visit Reasons: rescheduled for f/u Accompanied by: Self / Same As Patient Allergies doxycycline Allergy (Intermediate, Verified 08/09/25 13:21) Rash amoxicillin Allergy (Verified 08/09/25 13:21) Vomiting shellfish derived (shellfish) Allergy (Verified 08/09/25 13:21) Anaphylaxis Tobacco use date assessed: 08/09/25 Dental Screening Dental Screen Date: 08/09/25 Did you have a dental visit in the last 12 months?: Yes HPI HPI Comments History of Present Illness Details History of Present Illness The patient is a 39 year old female presenting for a follow-up visit to discuss multiple ongoing issues, including poor sleep, anxiety, and results of a recent cervical spine MRI. Cervical disc disorder with radiculopathy: The patient has an ongoing issue with a cervical disc disorder and underwent a recent MRI of the cervical spine without contrast. The MRI showed a focal kyphotic deformity at C6-7 and a small amount of dorsal interspinous edema at C6 and C7. The evaluation was limited because contrast was refused due to her being dizzy from fasting and having a fear of needles. She reports ongoing neck pain, intermittent tingling in her fingers that wakes her at night requiring her to shake her hands, and decreased strength in her arms since the original trauma. The neck discomfort and numbness also disrupt her sleep, forcing her to change positions. Anxiety: The patient continues to experience significant anxiety and reports that the prescribed hydroxyzine has been only slightly helpful. She has run out of her medication. She has tried to contact behavioral health services by leaving messages but has not received a return call. She also reports insomnia as a major concern. History of precancerous colon polyps: The patient has a history of precancerous polyps found a few years ago, requiring colonoscopy surveillance every three years. She is currently experiencing issues, reporting hematochezia and pain with bowel movements, and sometimes requires an ice pack for relief. She believes she may have some sort of blockage. She denies constipation, stating that while methadone causes slight constipation, she manages it with stool softeners. Menopause: The patient reports experiencing menopausal symptoms, including hot flashes and night sweats. She has not had a menstrual period in over a year. The hot flashes are described as severe episodes of sweating. Endometriosis: The patient reports a history of endometriosis and notes that her stomach issues are acting up again. Opioid Use disorder on Methadone Treatment: The patient is on methadone maintenance therapy, currently at a dose of 100 mg. She receives a week's worth of take-home doses at a time. Elevated liver enzymes: The patient has a history of elevated liver enzymes, for which an ultrasound is scheduled for this month. Hyperlipidemia: The patient has a diagnosis of hyperlipidemia. Surgical History: - History of colonoscopy with removal of precancerous polyps Medications: - Hydroxyzine for anxiety, of which she has run out. - Methadone 100 mg daily for opioid use disorder. - Stool softeners as needed for constipa tion. Social History: - Substance Use History: The patient is currently on methadone 100 mg daily and receives weekly take-home doses. - Functional Status: The patient ambulat es without difficulty, though she has moments where pain is worse than others and her strength is impacted. Family History: - Several female family members have tran gonzalez. Diagnostic Results: - Cervical Spine MRI (without contrast): There is a focal kyphotic deformity at C6-7 which has developed since the prior examination, mainly secondary to approximately 70% loss of height of the C6 vertebral body, and 50% loss of height of the C7 vertebral body. There is improved but mild persistent edema within these vertebral bodies. 2. The previously seen prevertebral and paravertebral extensive edema and small amount of fluid has resolved on the current study. There is a small amount of dorsal interspinous edema at C6-C7.3. There is mild persistent edema within the left C3-4 facets.4. There is a new curvilinear 4 mm maximal thickness T2 hypointense, gradient hyperintense focus of signal abnormality dorsal to the cord spanning C5-T1 as described above. There is no associated T1 signal abnormality. Unfortunately the patient refused contrast, significantly limiting evaluation of this finding. Differential includes a dorsal epidural abscess, dorsal epidural hematoma, or a prominent unusual CSF pulsation artifact. Given the fact there is a mild dorsal indentation upon the cord resulting from this abnormality, CSF pulsation artifact would seem unlikely. Several radiologists consulted on this examination, with similar consensus. This patient should return for postcontrast imaging given this finding Past Medical History - History of a stomach bug at the time o f her last visit. - Elevated liver enzymes, pending ultras ound. - Hyperlipidemia - Cervical disc disorder - Opioid use disorder, on methadone main tenance. - History of precancerous colon polyps. - Menopause, with last menstrual period over a year ago. - Endometriosis - Anxiety Health Maintenance - An abdominal ultrasound is scheduled t his month for elevated liver enzymes. - The patient is due for a surveillance colonoscopy every 3 years due to a his tory of precancerous polyps and will be scheduling an appointment soon. - The patient is aware of her posture to prevent progression of kyphosis. [facility] Medical History (Updated 08/10/25 @ 22:11 by Eyal Ramos MD) Opioid use disorder Methadone dependence Edema of cervical spinal cord Elevated liver enzymes Hyperlipidemia History of endocarditis Screening for malignant neoplasm of cervix History of bacteremia Anxiety Insomnia Endocarditis Spinal abscess Discitis Bacteremia Polysubstance use disorder Family History Mother Brain cancer Father Brain cancer Social History Household Members: Children Housing: House Do you presently have visiting nurse or other home services: No Alcohol intake: never Comment: patient steady on feet, rings appropriately Patient Tobacco Use Status: Former Tobacco user e-Cigarette/Vaping Use: Currently Using Substance Use Type: Crack/Cocaine service: No Current occupational status: unemployed Cognitive needs: No Hearing needs: No Vision needs: Yes (rx glasses) Questionnaire PHQ-9 Over the last 2 weeks, how often have you been bothered by any of the following problems? 1. Little interest or pleasure in doing things: more than half the days 2. Feeling down, depressed, or hopeless: more than half the days 3. Trouble falling or staying asleep, or sleeping too much: nearly every day 4. Feeling tired or having little energy: more than half the days 5. Poor appetite or overeating: several days 6. Feeling bad about yourself - or that you are a failure or have let yourself or your family down: not at all 7. Trouble concentrating on things, such as reading the newspaper or watching television: not at all 8. Moving or speaking so slowly that other people could have noticed. Or the opposite - being so fidgety or restless that you have been moving around a lot more than usual: not at all 9. Thoughts that you would be better off or of hurting yourself in some way: not at all Total score: 10 Depression Screening Interpretation: Positive Depression Screening Done: Yes Source: Developed by Drs. Teodoro Britt, Chanel Senior, Dakotah Jensen and colleagues, with an educational lucy from [employer]. Thrive Questionnaire Date Thrive assessed: 08/09/25 I am a: Patient What is your living situation today?: I have a place to live, but I am worried about losing it in the future Within the past 12 months, did the food you bought not last and you didn't have the money to get more?: Often true Within the past 12 months, did you worry whether your food would run out before you got money to buy more?: Often true Do you have trouble paying for medicines?: I choose not to answer this question Do you have trouble getting transportation to medical appointments?: No Do you have trouble paying your heating and electricity bill?: Yes Do you have trouble taking care of your child, family member or friend?: No Do you have trouble with day-to-day activities such as bathing, preparing meals, shopping, managing finances, etc.?: No Are you currently unemployed and looking for a job?: No Are you interested in more education?: No THRIVE Score: 4 AUDIT C Alcohol Use Questionnaire (AUDIT-C) 1. How often do you have a drink containing alcohol?: Monthly or less 2. How many drinks containing alcohol do you have on a typical day when you are drinking?: 1 or 2 3. How often do you have six or more drinks on one occasion?: Never Total Score: 1 ILIA-7 AMB Questionnaire ILIA-7 Date ILIA - 7 assessed: 08/09/25 Feeling nervous, anxious, or on edge: 0 = Not at all Not being able to stop or control worryin = Not at all Worrying too much about different things: 0 = Not at all Trouble relaxin = Not at all Being so restless that it is hard to sit still: 0 = Not at all Becoming easily annoyed or irritable: 0 = Not at all Feeling afraid as if something awful might happen: 0 = Not at all Total ILIA-7 score (0-4 normal; 5-9 mild; 10-14 moderate; 15-21 severe): 0 Source: Developed by Drs. Teodoro Britt, Chanel Senior, Dakotah Jensen and colleagues, with an educational lucy from [employer]. Review of Systems Narrative Review of Systems - General: Reports poor sleep. - GI: Reports hematochezia and pain with defecation; denies constipation. - Musculoskeletal: Reports neck pain and decreased arm strength. - Neurological: Reports intermittent tingling in fingers that awakens her from sleep. - Endocrine: Reports hot flashes and night sweats. - Gynecological: Reports amenorrhea for over one year. - Psychiatric: Reports feeling anxious. 10-point ROS reviewed and negative except as noted in HPI Physical exam (Primary Care) Vital Signs: Last Vital Signs Temp 98 F 08/09/25 12:55 Pulse 79 08/09/25 12:55 Resp 16 08/09/25 12:55 BP 118/73 08/09/25 12:55 Pulse Ox 95 08/09/25 12:55 Oxygen Delivery Method Room Air 08/09/25 12:55 BMI result Body Mass Index 26.2 Tobacco/Smoking Status: Tobacco use Status Tobacco use date assessed 08/09/25 08/09/25 12:57 Patient Tobacco Use Status Former Tobacco user 08/09/25 12:57 e-Cigarette/Vaping Use Currently Using 08/09/25 12:57 PHQ-9: PHQ-9 Score PHQ-9: Total score 10 08/09/25 13:16 Depression Screening Interpretation: Positive Thrive Assessment: Date of Thrive Assessment Date Thrive assessed 08/09/25 08/09/25 12:57 Narrative Physical Exam General: Well-appearing, in no acute distress. Vital signs: Within normal limits. HEENT: Normocephalic, atraumatic. PERRLA, EOMI. Conjunctiva clear, sclera anicteric. Oropharynx clear, mucous membranes moist. TMs intact bilaterally. Neck: Supple, no lymphadenopathy, no thyromegaly, no JVD or carotid bruits. Notable for focal kyphotic deformity at C6 and C7, with paravertebral and prevertebral edema. Cardiovascular: RRR, normal S1/S2, no murmurs, rubs, or gallops. Peripheral pulses 2+ and symmetric. No edema. Respiratory: Lungs clear to auscultation bilaterally, no wheezes, rales, or rhonchi. Normal effort. Abdomen: Soft, non-tender, non-distended. Normoactive bowel sounds. No hepatosplenomegaly, no masses. Patient reports history of precancerous polyps and bleeding with bowel movements. MSK: Full range of motion, no joint swelling or deformity. Normal gait. Reports tingling in fingers and neck pain affecting sleep. Skin: Warm, dry, intact. No rashes, lesions, or pallor. Neuro: Alert and oriented x3. Cranial nerves II-XII intact. Strength slightly impacted, tingling sensation noted in fingers. Sensation intact. Reflexes 2+ symmetric. Normal coordination and gait. Psych: Appropriate mood and affect. Normal judgment and insight. Reports anxiety and sleep disturbances, currently on hydroxyzine. Coding Level of Care Code Est Pt Level 3 (15242) Add On Problem Visit Only Diagnoses Anxiety F41.9 Elevated liver enzymes R74.8 Hyperlipidemia E78.5 Edema of cervical spinal cord G95.19 Opioid use disorder F11.90 Methadone dependence F11.20 Neck pain M54.2 Assessment & Plan Assessment & Plan (1) Anxiety: Code(s): F41.9 - Anxiety disorder, unspecified Category: Medical (2) Elevated liver enzymes: Code(s): R74.8 - Abnormal levels of other serum enzymes Category: Medical (3) Hyperlipidemia: Code(s): E78.5 - Hyperlipidemia, unspecified Category: Medical (4) Edema of cervical spinal cord: Code(s): G95.19 - Other vascular myelopathies Category: Medical (5) Opioid use disorder: Code(s): F11.90 - Opioid use, unspecified, uncomplicated Category: Medical (6) Methadone dependence: Code(s): F11.20 - Opioid dependence, uncomplicated Category: Medical (7) Neck pain: Code(s): M54.2 - Cervicalgia Category: Medical Plan Consent Patient was informed and verbally consented to the use of an ambient scribe for clinic note documentation during this visit. Plan 1. Cervical Disc Disorder With Radiculopathy - An MRI of the cervical spine with contrast will be ordered to better evaluate the findings from the previous non-contrast study. - A referral to a neuro-spine surgeon will be placed for further evaluation and management, pending the results of the new imaging. - A 6-day steroid dose pack is prescribed to help with the edema and associated swelling. 2. Anxiety And Insomnia - The patient was provided with the contact information for [facility] for an urgent behavioral health evaluation to manage anxiety and insomnia. - A 3-month prescription for hydroxyzine to be taken twice daily was sent to the pharmacy to bridge the patient until her behavioral health appointment. 3. History Of Precancerous Colon Polyps - The patient will follow up to schedule her surveillance colonoscopy, which is due. 4. Opioid Use Disorder On Methadone Treatment - Continue current methadone 100 mg daily. 5. Menopause - The patient was counseled that her symptoms of hot flashes, night sweats, and amenorrhea for over a year are consistent with menopause. Discussion Notes I reviewed the results of the patient's recent cervical spine MRI without contrast. I explained that the MRI showed a focal kyphotic deformity and edema at C6-C7, but the evaluation was significantly limited because contrast was not used. I stressed the importance of repeating the MRI with contrast to get a clearer picture. We discussed her symptoms of intermittent finger tingling, which I suspect is related to her cervical spine issues. I informed her that once the new imaging is complete, I will place a referral to neuro-spine surgery for a consultation. We also addressed her ongoing anxiety and insomnia. I recommended she see a behavioral health specialist and provided her with the contact information for [facility], advising her they would see her quickly. To manage her symptoms in the interim, I refilled her hydroxyzine at a twice-daily dose for three months. To address the swelling in her neck, I prescribed a steroid dose pack. Finally, we discussed her hot flashes and lack of menstruation for over a year, and I confirmed that this indicates she is in menopause. We briefly touched on her history of precancerous polyps, and I noted she is due for her follow-up colonoscopy. Patient Instructions - Complete the new MRI of your neck, this time with contrast. Be prepared for the injection by eating and drinking beforehand to avoid dizziness. - Contact [facility] to schedule an appointment for your anxiety and sleep issues. I will provide you with their phone number. - A new prescription for hydroxyzine, to be taken twice a day for 3 months, has been sent to your pharmacy. - A prescription for a 6-day course of steroids (Dosepak) to help with the swelling in your neck has been sent to your pharmacy. - Remember to schedule your follow-up colonoscopy, as you are due for this scr eening. - Continue taking your methadone as prescribed. Medical Decision Making The patient is a 39-year-old female with multiple chronic conditions who presents for follow-up. Her primary complaints are related to her cervical disc disorder, anxiety, and insomnia. The recent non-contrast MRI of the cervical spine revealed a new kyphotic deformity and interspinous edema at C6-C7, which correlates with her symptoms of neck pain and radiculopathy. However, the study was significantly limited by the lack of contrast, which the patient refused at the time due to feeling unwell. A repeat MRI with contrast is clinically necessary for a complete diagnostic picture before specialist consultation. A referral to neuro-spine surgery is warranted given the imaging findings and her persistent neurological symptoms, but this will be deferred until definitive imaging is obtained. In the interim, a short course of oral steroids is a reasonable approach to temporize the inflammatory component and alleviate some of her neck swelling and discomfort. Her anxiety and insomnia are significant and appear undertreated with the current regimen of hydroxyzine. escalation of anxiolytic medication without specialist input is not ideal; therefore, a referral to behavioral health for comprehensive management is the most appropriate next step. I provided a direct referral to a responsive clinic. Refilling hydroxyzine with clear twice-daily dosing instructions serves as a necessary bridge therapy. We also addressed health maintenance, confirming her menopausal status based on amenorrhea of over one year and associated vasomotor symptoms. Given her gastrointestinal symptoms of hematochezia and pain, along with her history of precancerous polyps, her overdue surveillance colonoscopy is of high importance. Total Time Statement 20 min Total time spent caring for the patient today includes pre-visit chart review, documentation, review of laboratory and diagnostic imaging results, medication reconciliation, medically necessary evaluation, counseling on diagnoses, care coordination, ordering appropriate tests and medications, review of tests performed by other providers, reporting test results to the patient, and communication with other healthcare providers. Orders: Orders Influenza [id number] Immunization 08/09/25 Z23 - Encounter for immunization MR cervical spine w con 08/09/25 M54.2 - Cervicalgia Referrals Neuro Spine Referral G95.19 - Other vascular myelopathies Medications: New Fluarix [id number] (PF) (flu vac ts (6mos up)-PF) 0.5 mL IM ONCE 0.5 mL 0RF NS Z23 - Encounter for immunization hydroxyzine HCl 50 mg PO BID 180 tabs 0RF methylprednisolone 4 mg PO PER PKG DIR 21 ea 0RF
== END 2025-08-09 13:54 | disposition home or self-care (01) ==
LOC: HO.HMCFMS 12:54
PROVIDERS: PCP Student in an Organized Health Care Education/Training Program; Visit Provider Student in an Organized Health Care Education/Training Program
DX: F41.9 Anxiety disorder, unspecified (principal); R74.8 Abnormal levels of other serum enzymes; E78.5 Hyperlipidemia, unspecified; G95.19 Other vascular myelopathies; F11.90 Opioid use, unspecified, uncomplicated; F11.20 Opioid dependence, uncomplicated; M54.2 Cervicalgia

== ENCOUNTER → 2025-08-09 12:53 | Outpatient (BNVA) | payer OTHER, SELFPAY | PROVIDERS: PCP Student in an Organized Health Care Education/Training Program; Visit Provider Student in an Organized Health Care Education/Training Program | DX: M54.2 Cervicalgia (principal); F41.9 Anxiety disorder, unspecified; E78.5 Hyperlipidemia, unspecified; R74.8 Abnormal levels of other serum enzymes; G95.19 Other vascular myelopathies; F11.20 Opioid dependence, uncomplicated; Z13.31 Encounter for screening for depression; Z13.39 Encounter for screening examination for other mental health and behavioral disorders | CPT/HCPCS: 96127; 99212 ==

== ENCOUNTER 2025-08-27 11:16 | Outpatient (REF) | payer OTHER, SELFPAY ==
--- NOTE | ~2025-08-27 | US_ITS ---
CLINICAL HISTORY: R74.8 - Abnormal levels of other serum enzymes US abdomen limited Comparison: None provided Findings: The visualized pancreas, aorta, and inferior vena cava are unremarkable. The liver is mildly enlarged, right lobe length is 18.0 cm. Normal in echogenicity, no discrete lesion is visualized in the imaged liver. No bile duct dilatation. Common duct 5 mm diameter. Normal gallbladder. Negative sonographic Terrell sign. Main portal vein shows antegrade flow. Right kidney normal, 11.0 cm in length. No free fluid in the right upper quadrant of the abdomen. Impression: Mild hepatomegaly, otherwise unremarkable. This document has been electronically signed by: Domitila Sarabia MD on 08/28/2025 16:55:04
== END 2025-08-27 11:17 | disposition home or self-care (01) ==
LOC: HO.HMGCX 11:16
PROVIDERS: PCP Student in an Organized Health Care Education/Training Program; Visit Provider Student in an Organized Health Care Education/Training Program
DX: R74.8 Abnormal levels of other serum enzymes (principal)
CPT/HCPCS: 76705

== ENCOUNTER → 2025-08-27 11:28 | Outpatient (BNV) | payer OTHER, SELFPAY | PROVIDERS: PCP Student in an Organized Health Care Education/Training Program; Visit Provider Radiology Diagnostic Radiology | DX: R16.0 Hepatomegaly, not elsewhere classified (principal) | CPT/HCPCS: 76705 ==